=== PATIENT | female | born 1945 | race Caucasian/White ===

== ENCOUNTER → 2023-10-23 06:09 | Day surgery (SDC) | payer MEDICARE, OTHER, SELFPAY | LOC: GI 06:09 | PROVIDERS: ATTENDING PHYSICIAN Internal Medicine | DX: Z12.11 Encounter for screening for malignant neoplasm of colon (principal); D12.2 Benign neoplasm of ascending colon; D12.3 Benign neoplasm of transverse colon; K57.30 Diverticulosis of large intestine without perforation or abscess without bleeding; K64.9 Unspecified hemorrhoids; Z86.010 Personal history of colon polyps; Z79.01 Long term (current) use of anticoagulants | CPT/HCPCS: 45385; 45380; 45381; 88305 ==

== ENCOUNTER → 2023-12-02 08:55 | Outpatient (REF) | payer MEDICARE, OTHER, SELFPAY ==
[2023-12-02 12:29] LABS: ALT (SGPT) 24 U/L (0-35); AST (SGOT) 30 U/L (14-36); Albumin 4.8 g/dl (3.5-5.0); Alkaline Phosphatase 101 U/L (38-126); Blood Urea Nitrogen 17 mg/dl (7-17); Calcium 9.9 mg/dl (8.4-10.2); Carbon Dioxide 24 mmol/L (22-30); Chloride 102 mmol/L (98-107); Glucose 102 mg/dl (70-99); HDL Cholesterol 90 mg/dl; Iron 92 ug/dl (37-170); LDL Cholesterol, Calculated 54 mg/dl; Potassium 4.2 mmol/L (3.5-5.1); Sodium 136 mmol/L (135-145); Total Bilirubin 1.4 mg/dl (0.2-1.3); Total Cholesterol 161 mg/dl (50-199); Total Protein 7.6 g/dl (6.3-8.2); Triglyceride 88 mg/dl (10-149); Very Low Density Lipoprotein 17 mg/dl (0-30); eGFR > 60.00
[2023-12-02 12:38] LABS: Percent Saturation 20 % (20-50); Total Iron Binding Capacity 446 ug/dl (265-497)
[2023-12-02 12:57] LABS: TSH Reflex To Free T4 1.18 uIU/ml (0.47-4.68)
== END ==
LOC: HWLAB 08:55
PROVIDERS: ATTENDING PHYSICIAN Nurse Practitioner Adult Health
DX: D64.9 Anemia, unspecified (principal); I12.9 Hypertensive chronic kidney disease with stage 1 through stage 4 chronic kidney disease, or unspecified chronic kidney disease; I48.0 Paroxysmal atrial fibrillation; E78.5 Hyperlipidemia, unspecified; N18.31 Chronic kidney disease, stage 3a; D72.829 Elevated white blood cell count, unspecified
CPT/HCPCS: 36415; 80053; 80061; 82728; 83540; 83550; 84443

== ENCOUNTER → 2023-12-03 07:24 | Outpatient (REF) | payer MEDICARE, OTHER, SELFPAY ==
[2023-12-03 12:50] LABS: % Eosinophils 1.3 % (0-6); % Immature Granulocytes 0.5 % (0-0.5); % Lymphocytes 12.6 % (20.5-51.1); % Monocytes 9.3 % (1.7-9.3); % Neutrophils 75.3 % (42.2-75.2); Absolute Basophils 0.1 10^3/uL (0-0.2); Absolute Eosinophils 0.1 10^3/uL (0-0.7); Absolute Monocytes 0.7 10^3/uL (0.1-0.6); Absolute Neutrophils 5.9 10^3/uL (1.4-6.5); Hematocrit 44.7 % (37.0-47.0); Hemoglobin 14.3 g/dL (12.0-16.0); Mean Corpuscular Hgb 27.2 pg (27.0-31.0); Mean Corpuscular Volume 85.1 fL (81.0-99.0); Mean Platelet Volume 11.4 fL (7.4-10.4); Nucleated Red Blood Cells % 0 %; Platelet Count 292 10^3/uL (130-400); Red Blood Cell Count 5.25 10^6/uL (4.20-5.40); Red Cell Dist. Width 14.7 % (11.5-14.5); White Blood Cell Count 7.9 10^3/uL (4.8-10.8)
== END ==
LOC: HWLAB 07:24
PROVIDERS: ATTENDING PHYSICIAN Nurse Practitioner Adult Health
DX: D72.829 Elevated white blood cell count, unspecified (principal)
CPT/HCPCS: 36415; 85025

== ENCOUNTER 2024-02-03 06:13 | Day surgery (SDC) | payer MEDICARE, OTHER, SELFPAY ==
[2024-02-03 11:30] VITALS: BP 204/93; BMI 33.1
[2024-02-03 11:45] VITALS: BMI 33.1
[2024-02-03 11:56] VITALS: BP 186/99
[2024-02-03 15:24] VITALS: BP 149/68
[2024-02-03 15:30] VITALS: BP 156/65
[2024-02-03 15:45] VITALS: BP 173/85
== END 2024-02-03 15:55 | disposition home or self-care (01) ==
LOC: GI 06:13
PROVIDERS: ATTENDING PHYSICIAN Internal Medicine Gastroenterology
DX: D12.3 Benign neoplasm of transverse colon (principal); D12.2 Benign neoplasm of ascending colon; Q43.8 Other specified congenital malformations of intestine; K64.0 First degree hemorrhoids
CPT/HCPCS: 45390; 88305

== ENCOUNTER → 2024-03-29 08:20 | Outpatient (REF) | payer MEDICARE, OTHER, SELFPAY ==
[2024-03-29 13:07] LABS: ALT (SGPT) 17 U/L (0-35); AST (SGOT) 23 U/L (14-36); Albumin 4.7 g/dl (3.5-5.0); Alkaline Phosphatase 83 U/L (38-126); Blood Urea Nitrogen 22 mg/dl (7-17); Calcium 10.2 mg/dl (8.4-10.2); Carbon Dioxide 29 mmol/L (22-30); Chloride 102 mmol/L (98-107); Glucose 100 mg/dl (70-99); HDL Cholesterol 84 mg/dl; LDL Cholesterol, Calculated 69 mg/dl; Potassium 4.5 mmol/L (3.5-5.1); Sodium 139 mmol/L (135-145); Total Cholesterol 168 mg/dl (50-199); Total Protein 7.1 g/dl (6.3-8.2); Triglyceride 79 mg/dl (10-149); Very Low Density Lipoprotein 15 mg/dl (0-30); eGFR > 60.00
[2024-03-29 13:20] LABS: Vitamin D, 25-OH*** 41.7 ng/mL (30-80)
[2024-03-29 13:51] LABS: Glycohemoglobin (HgbA1c) 5.7 % (4.0-5.6)
[2024-03-29 13:54] LABS: Microalbumin, Random Urine 3.4 mg/dl (0.6-1.7); Microalbumin/creatinine Ratio 153.8 mg/g
== END ==
LOC: HWLAB 08:20
PROVIDERS: ATTENDING PHYSICIAN Internal Medicine Cardiovascular Disease; FAMILY PHYSICIAN Physician Assistant
DX: L12.9 Pemphigoid, unspecified (principal); N18.31 Chronic kidney disease, stage 3a; R79.89 Other specified abnormal findings of blood chemistry; D64.9 Anemia, unspecified; E78.5 Hyperlipidemia, unspecified; I10 Essential (primary) hypertension; E55.9 Vitamin D deficiency, unspecified
CPT/HCPCS: 80053; 80061; 82043; 82306; 82570; 83036

== ENCOUNTER → 2024-07-22 06:35 | Day surgery (SDC) | payer MEDICARE, OTHER, SELFPAY | LOC: GI 06:35 | PROVIDERS: ATTENDING PHYSICIAN Internal Medicine | DX: Z09 Encounter for follow-up examination after completed treatment for conditions other than malignant neoplasm (principal); Z86.0101 Personal history of adenomatous and serrated colon polyps; K57.30 Diverticulosis of large intestine without perforation or abscess without bleeding; D12.3 Benign neoplasm of transverse colon | CPT/HCPCS: 45385; 45380; 88305 ==

== ENCOUNTER → 2024-11-02 11:43 | Outpatient (REF) | payer MEDICARE, OTHER, SELFPAY | LOC: HWRCS 11:43 | PROVIDERS: ATTENDING PHYSICIAN Internal Medicine Cardiovascular Disease | DX: I34.0 Nonrheumatic mitral (valve) insufficiency (principal) | CPT/HCPCS: 93306 ==

== ENCOUNTER → 2025-01-05 11:35 | Outpatient (REF) | payer MEDICARE, OTHER, SELFPAY | LOC: PAVMRI 11:35 | PROVIDERS: ATTENDING PHYSICIAN Internal Medicine; FAMILY PHYSICIAN Physician Assistant | DX: K86.2 Cyst of pancreas (principal) | CPT/HCPCS: 74183; A9575 ==

== ENCOUNTER 2025-01-17 08:09 | Inpatient (IN) | payer MEDICARE, OTHER, SELFPAY ==
[2024-12-24 13:51] LABS: Hematocrit 44.4 % (37.0-47.0); Hemoglobin 14.9 g/dL (12.0-16.0); Mean Corp Hgb Conc. 33.6 g/dL (33.0-37.0); Mean Corpuscular Hgb 29.3 pg (27.0-31.0); Mean Corpuscular Volume 87.4 fL (81.0-99.0); Mean Platelet Volume 11.3 fL (7.4-10.4); Platelet Count 248 10^3/uL (130-400); Red Blood Cell Count 5.08 10^6/uL (4.20-5.40); Red Cell Dist. Width 13.9 % (11.5-14.5)
[2024-12-24 14:04] LABS: ALT (SGPT) 27 U/L (0-35); AST (SGOT) 37 U/L (14-36); Albumin 4.4 g/dl (3.5-5.0); Alkaline Phosphatase 108 U/L (38-126); Blood Urea Nitrogen 31 mg/dl (7-17); Calcium 10.3 mg/dl (8.4-10.2); Carbon Dioxide 31 mmol/L (22-30); Chloride 99 mmol/L (98-107); Glucose 103 mg/dl (70-99); Potassium 3.9 mmol/L (3.5-5.1); Sodium 139 mmol/L (135-145); Total Protein 7.3 g/dl (6.3-8.2); eGFR > 60.00
[2024-12-24 14:13] VITALS: BMI 30.5
[2024-12-24 14:19] LABS: Glycohemoglobin (HgbA1c) 5.9 % (4.0-5.6)
[2024-12-24 15:54] VITALS: BMI 30.5
[2025-01-17] VITALS (13 sets, daily range): BP systolic 116–176; BP diastolic 50–96; PULSE 94; O2SAT 92; BMI 30.5
[2025-01-17] MEDS: CELEBREX 200 MG PO (09:31)
[2025-01-17] MEDS: TYLENOL 650 MG PO ×4 (09:32→23:29)
[2025-01-17] MEDS: NORMOSOL-R/PLASMALYTE-A 1000 IV ×2 (09:35→15:59)
--- NOTE | 2025-01-17 11:56 | W.PN.UPDATE ---
Update Note
Progress Note Update
R TKA 01/17/25
DVT ppx-Eliquis
PAF-diltiazem, Metoprolol, Sotalol uninterrupted and add Midodrine in the event of [id number] full dose Eliquis on POD#3 if hemodynamically stable
Hx GIB/gastric ulcers/GERD--PPI-hgb stable
PMH:
1. Paroxysmal atrial fibrillation.
2. Hypertension.
3. Hyperlipidemia.
4. Dyspnea on exertion.
5. Mitral regurgitation, moderate.
6. GI bleed secondary to gastric ulcers with resultant iron
deficiency anemia.
7. Breast cancer >20 years, right mastectomy, lymph
node dissection, chemo and radiation.
8. History of elevated LFTs, resolved.
9. GERD.
--- NOTE | 2025-01-17 14:10 | W.DS.TRANS ---
DC Summary - Save All Operator
-
Discharge Instructions:
Sleep Apnea Risk Low
Discharge Diagnosis/Procedures R TKA 01/17/25
Diet As tolerated
Activity With Walker
Additional Activity Adequate hydration, minimize Oxy and wear TEDs
stockings to prevent low blood pressure/
dizziness
Driving Restrictions No driving
Bathing Restrictions OK to Shower
Other Services PT
Instructions:
Stand-Alone Forms: Total Hip/Knee Replacement D/C
Changes to Home Medications: Yes
Discharge Medications:
DC Medications w/original date entered in [facility]
diltiazem HCl 300 mg capsule,extended release 24 hr 300 mg PO DAILY Heart disease/condition 12/16/20
pantoprazole 40 mg tablet,delayed release 40 mg PO DAILY Gastrointestinal Issue 03/29/23
metoprolol succinate 50 mg tablet,extended release 24 hr 75 mg (1.5 x 50 mg) PO DAILY #60 tabs 06/25/23
sotalol 80 mg tablet 80 mg PO BID #60 tabs 06/25/23
atorvastatin 20 mg tablet 20 mg PO QPM 02/03/24
multivitamin with minerals-folic acid 200 mcg chewable tablet (Multivitamin Gummies) 2 tab PO DAILY 12/22/24
dexamethasone 4 mg tablet 4 mg PO BID inflammation #6 tabs 12/24/24
gabapentin 300 mg capsule 300 mg PO HS sleep/pain #10 caps 12/24/24
mupirocin 2 % topical ointment 1 applic topical BID infection prevention #1 tube 12/24/24
ondansetron 4 mg disintegrating tablet 4 mg PO Q6H PRN n/v #20 tabs 12/24/24
oxycodone 5 mg tablet 5 mg PO Q6H PRN 1 tab moderate pain, 2 tabs severe pain #30 tabs 12/24/24
acetaminophen 500 mg tablet 1,000 mg (2 x 500 mg) PO QID #0 tabs 01/17/25
apixaban 5 mg tablet (Eliquis) 2.5 mg (1/2 x 5 mg) PO BID Blood clot prevention/tx/afib #1 tab 01/17/25
docusate sodium 100 mg capsule (Colace) 100 mg PO BID stool softner #1 cap 01/17/25
hydrochlorothiazide 25 mg tablet 25 mg PO DAILY #0 tabs 01/17/25
lisinopril 40 mg tablet 40 mg PO DAILY Blood Pressure #0 tabs 01/17/25
magnesium hydroxide 400 mg/5 mL oral suspension (Milk of Magnesia) 30 ml PO HS PRN constipation #1 mL 01/17/25
sennosides 8.6 mg tablet (Senokot) 17.2 mg (2 x 8.6 mg) PO BID laxative #2 tabs 01/17/25
Home Medication Changes
dexamethasone 4 mg tablet 4 mg PO BID inflammation #6 tabs 12/24/24
gabapentin 300 mg capsule 300 mg PO HS sleep/pain #10 caps 12/24/24
mupirocin 2 % topical ointment 1 applic topical BID infection prevention #1 tube 12/24/24
ondansetron 4 mg disintegrating tablet 4 mg PO Q6H PRN n/v #20 tabs 12/24/24
oxycodone 5 mg tablet 5 mg PO Q6H PRN 1 tab moderate pain, 2 tabs severe pain #30 tabs 12/24/24
acetaminophen 500 mg tablet 1,000 mg (2 x 500 mg) PO QID #0 tabs 01/17/25
apixaban 5 mg tablet (Eliquis) 2.5 mg (1/2 x 5 mg) PO BID Blood clot prevention/tx/afib #1 tab 01/17/25
docusate sodium 100 mg capsule (Colace) 100 mg PO BID stool softner #1 cap 01/17/25
hydrochlorothiazide 25 mg tablet 25 mg PO DAILY #0 tabs 01/17/25
lisinopril 40 mg tablet 40 mg PO DAILY Blood Pressure #0 tabs 01/17/25
magnesium hydroxide 400 mg/5 mL oral suspension (Milk of Magnesia) 30 ml PO HS PRN constipation #1 mL 01/17/25
sennosides 8.6 mg tablet (Senokot) 17.2 mg (2 x 8.6 mg) PO BID laxative #2 tabs 01/17/25
Pending Results: No
[2025-01-17] MEDS: ROXICODONE 5 MG PO ×2 (15:46→23:53)
--- NOTE | 2025-01-17 17:15 | PTCARENOTE ---
Patient admitted from PACU post total right knee arthroplasty.The patient is alert and oriented.She reports herbpain at a 4 out of 10.Vital signs are stable.Neurovascular assessment is within normal limits and ongoing.The dressing is intact without
drainage.The patient is in her bed with the call johnson in place.Her is at the bedside.
[2025-01-17] MEDS: LIPITOR 20 MG PO (18:04)
[2025-01-17] MEDS: ProAmatine PO (18:05)
[2025-01-17] MEDS: ANCEF 5 IV (20:48)
[2025-01-17] MEDS: BACTROBAN 2% OINTMENT 1 APPLIC NASAL (20:48)
[2025-01-17] MEDS: SENOKOT 17.2 MG PO (20:49)
[2025-01-17] MEDS: COLACE 100 MG PO (20:49)
[2025-01-17] MEDS: ELIQUIS 2.5 MG PO (20:50)
[2025-01-17] MEDS: DECADRON 4 MG IV (20:50)
[2025-01-17] MEDS: BETAPACE 80 MG PO (20:50)
[2025-01-17] MEDS: NEURONTIN 300 MG PO (21:22)
[2025-01-18] VITALS (8 sets, daily range): BP systolic 128–164; BP diastolic 58–78; PULSE 59–61; O2SAT 95
[2025-01-18] MEDS: ANESTHETIC LOZENGE 1 LOZENGE PO (01:54)
[2025-01-18] MEDS: ANCEF 5 IV (04:17)
[2025-01-18] MEDS: TYLENOL 650 MG PO ×3 (04:17→11:56)
[2025-01-18] MEDS: ROXICODONE 10 MG PO ×2 (05:56→11:56)
[2025-01-18] MEDS: ELIQUIS 2.5 MG PO (08:18)
[2025-01-18] MEDS: PROTONIX 40 MG PO (08:19)
[2025-01-18] MEDS: SENOKOT 17.2 MG PO (08:19)
[2025-01-18] MEDS: COLACE 100 MG PO (08:19)
[2025-01-18] MEDS: ProAmatine PO (08:20)
[2025-01-18] MEDS: BETAPACE 80 MG PO (08:21)
[2025-01-18] MEDS: CARDIZEM CD 300 MG PO (08:21)
[2025-01-18] MEDS: TOPROL XL 75 MG PO (08:21)
[2025-01-18] MEDS: DECADRON 4 MG IV (08:21)
[2025-01-18] MEDS: FLUSH (NSS) 1 FLUSH IV (08:22)
[2025-01-18] MEDS: BACTROBAN 2% OINTMENT 1 APPLIC NASAL (08:27)
--- NOTE | 2025-01-18 08:32 | W.PN.ORTHO ---
Today's Communication / Plan
-
d/c
Assessment
.
Distal Motor Intact: Yes
Dressing:
Clean, dry and intact.
Assessment:
Incisional hjjfdzyo-NWD-jtggrpca change-no hemodynamic compromise-hgb stable
PAF-diltiazem, Metoprolol, Sotalol uninterrupted and add Midodrine in the event of orthostasis-stable on tele-resume full dose Eliquis on POD#3 if hemodynamically stable
Hx GIB/gastric ulcers/GERD--PPI-hgb stable
Plan
.
Surgery / Date: R TKA 01/17/25
DVT Prophylaxis: Other (Eliquis)
Activity:
Out of bed.
PT/OT
Discharge Plan: Home w/ Outpatient PT
Subjective
.
.:
Patient resting comfortably.
Vital Signs and Labs
.
Vital Signs and Labs:
Lab Results
12/24/24 12:35
12/24/24 12:35
Temp Pulse Resp BP Pulse Ox
98.4 F 60 16 164/74 92
01/18/25 03:00 01/18/25 08:21 01/18/25 03:00 01/18/25 08:21 01/18/25 03:00
Non-invasive Hgb result: 12.8
Physical Exam
-
HEENT: No pallor, cyanosis, or jaundice. Throat clear.
NECK: Supple. No JVD.
RESPIRATORY: Lungs clear to auscultation.
CVS: S1, S2 normal. RRR.� No murmur, rub or gallop.
ABDOMEN: Soft, non-tender. No distension. BS+/normal.
EXTREMITIES: strength equal, no calf pain with palpation-bandage with some distal drainage
MANAGER STORE: AOx3. No focal deficits. psychology teacher grossly intact
--- NOTE | 2025-01-18 09:02 | CM ---
Cm reviewed medical records. Patient lives independently with in bi level home. Patient does not have a history of VN, SNF. Patient confirmed that she has a cane and walker. Patient is active with her PCP. Patient has medication coverage.
Patient plans to use [facility] outpatient physical therapy.
PLAN: home with outpatient physical therapy.
[2025-01-18] MEDS: CYKLOKAPRON 1300 MG PO (13:34)
[2025-01-18] MEDS: ProAmatine 2.5 MG PO (13:37)
== END 2025-01-18 15:12 | disposition home or self-care (01) | DRG 470 ==
LOC: 2 SOUTH 08:09
PROVIDERS: ADMITTING PHYSICIAN Specialist; FAMILY PHYSICIAN Physician Assistant; REFERRING PHYSICIAN Internal Medicine Cardiovascular Disease
PROC: 0SRC0J9 Replacement of Right Knee Joint with Synthetic Substitute, Cemented, Open Approach (ICD-10-PCS; 2025-01-17)
DX: M17.11 Unilateral primary osteoarthritis, right knee (principal); Z68.35 Body mass index [BMI] 35.0-35.9, adult; E66.9 Obesity, unspecified; I48.0 Paroxysmal atrial fibrillation; I10 Essential (primary) hypertension; E78.5 Hyperlipidemia, unspecified; I34.0 Nonrheumatic mitral (valve) insufficiency; D50.9 Iron deficiency anemia, unspecified; Z90.11 Acquired absence of right breast and nipple; Z85.3 Personal history of malignant neoplasm of breast; K21.9 Gastro-esophageal reflux disease without esophagitis; Z79.01 Long term (current) use of anticoagulants
CPT/HCPCS: 36415; 73560; 80053; 83036; 85027; 86850; 86900; 86901; 87070; 97110; 97116; 97162; 97166; 97535; C1713; C1776

== ENCOUNTER 2025-01-19 22:00 | Inpatient (IN) | payer MEDICARE, OTHER, SELFPAY ==
[2025-01-19] VITALS (25 sets, daily range): BP systolic 92–131; BP diastolic 50–66; BMI 37.5; BMI 37.1; BMI 36.1
--- NOTE | 2025-01-19 19:03 | ED.GENMED ---
History of Present Illness
General
Chief Complaint: Heart Rate Problem
Source: patient
Time Seen by Provider: 01/19/25 19:00
History of Present Illness
History of Present Illness:
79-year-old female brought to the emergency room after being found unresponsive by her . The patient recently had her right knee replaced by Dr. Restrepo. She was discharged from the hospital yesterday actually. She took oxycodone for pain
and became very sleepy. Her is having difficulty arousing her. He called 911. When medics arrived they found the patient to be quite bradycardic and hypotensive. She was given a 400 cc fluid bolus and an epinephrine infusion was started.
Patient seemed to improve in their estimation. She arrives here awake, feeling tired but no other specific complaints. Patient did restart her Eliquis this morning. Patient has a history of atrial fibrillation. She takes sotalol, Cardizem and
metoprolol. She denies chest pain.
Past History
Past History
ED Past Medical History: Arrthythmia, HTN and Hypercholesterolemia
ED Past Surgical History: Gynecological
Patient has exhibited threatening behavior?: No
Social History
Tobacco: Non-smoker
Alcohol: None
Drug: None
Personal:
Living: with family
Employment: Retired
Family History
Family History: Other (Noncontributory)
Phy Exam
Physical Exam
Physical Exam:
General: Awake, Alert, Oriented X3. No acute distress.
Vitals: Bradycardic
Head: Atraumatic
Eyes: Pupils equal, EOMI
Throat: Airway intact, no exudates
Neck: Trachea midline
Lungs: Clear and equal b/l
Heart: Regular rate, no murmurs
Abd: Soft, Nontender, No pulsatile mass
Neuro: Nonfocal
Skin: Warm, dry, no rash
Extremities: pulses equal b/l, WANDA stockings in place bilaterally, dressing over right knee.
Course
Orders/Labs/Results
Orders:
Orders
01/19/25 18:53
Electrocardiogram (*1) Urgent
Reason for Study: Bradycardia / Tachycardia
EKG- Treatment ONCE
01/19/25 19:11
Basic Metabolic Panel Urgent
Complete Blood Count/With Diff Urgent
Magnesium Urgent
Phos [Phosphorus] Urgent
TSH Reflex To Free T4 Urgent
01/19/25 19:13
0.9% Sodium Chloride 500 ml [Nss] 500 ml IV BOLUS
01/19/25 20:30
0.9% Sodium Chloride 1000 ml [Nss] 1,000 ml IV DIRECTED
01/19/25 20:31
Urinalysis Urgent
Urine Sodium Urgent
01/19/25 20:32
Osmolality, Random Urine Urgent
Abnormal Lab Results
01/19/25
19:11
WBC 17.2 H 10^3/uL
(4.8-10.8)
RBC 3.68 L 10^6/uL
(4.20-5.40)
Hgb 11.0 L g/dL
(12.0-16.0)
Hct 31.6 L %
(37.0-47.0)
MPV 11.0 H fL
(7.4-10.4)
Abs Immat Gran (auto) 0.6 H 10^3/uL
(0-0.05)
Absolute Neuts (auto) 14.4 H 10^3/uL
(1.4-6.5)
Absolute Monos (auto) 0.9 H 10^3/uL
(0.1-0.6)
Immature Gran % 3.4 H %
(0-0.5)
Neutrophils % 83.4 H %
(42.2-75.2)
Lymphocytes % 7.3 L %
(20.5-51.1)
Sodium 126 L mmol/L
(135-145)
Chloride 94 L mmol/L
(98-107)
BUN 44 H mg/dl
(7-17)
Creatinine 1.5 H mg/dL
(0.6-1.0)
Glucose 218 H mg/dl
(70-99)
Phosphorus 5.4 H mg/dl
(2.5-4.5)
01/19/25 19:11
01/19/25 19:11
Vital Signs
Initial and Last Documented VS:
Initial Vital Signs
Pulse Resp BP Pulse Ox
49 19 98/62 93
01/19/25 18:52 01/19/25 18:52 01/19/25 18:52 01/19/25 18:52
Last Documented Vital Signs
Pulse Resp BP Pulse Ox
42 13 110/56 97
01/19/25 19:55 01/19/25 19:55 01/19/25 19:55 01/19/25 19:55
MDM/Problems Addressed
Differential Diagnosis Includes:
Hypokalemia, dehydration, medication effect, sick sinus syndrome
MDM/Problems Addressed:
Patient presents after a period of being unresponsive. She was found to be hypotensive and bradycardic by medics. On arrival here the patient had improved. She remains bradycardic but her heart rate is staying in the high 30s to low 40s. Her
blood pressure is adequate with a MAP consistently above 65. Labs that showed that the patient is dehydrated with an elevated BUN and creatinine. She is also noted to have a low sodium of 126. All of these labs were normal on preop testing. EKG
shows A-fib with a bradycardic rhythm. Patient will require hospitalization to receive IV fluids, monitor her sodium and renal function and monitor her heart rate and blood pressure. I did communicate with Dr. San who is on-call for cardiology.
He recommends holding her AV pao blocking agents and if she were to require pressors to use epinephrine. Currently I do not believe she requires pressors as again her MAP is adequate. Patient complained of some slurred speech. She had taken
oxycodone shortly before this event. I believe her slurred speech is opiate related as she has no focal neurologic findings.
*Pulse Oximetry
Patient hypoxic: no
*EKG
Interpreted by ED Provider?: Yes
Rate: bradycardiac
Rhythm: a-fib
[place]: normal axis
Interval: normal interval
QRS Pattern: normal QRS
Ischemia: non-specific ST changes
*Yacht Rigger Interpretation
Interpretation: abnormal
Rhythm: a-fib
*Critical Care Note
Total Time (30-74mins, 75-104mins- exclusive of procedures): 40 min
comment:
Critical care statement: A total of 40 minutes of critical care time was provided for this patient. This includes management of unstable vital signs, evaluation of the patient at bedside, reviewing the patient's pertinent medical records, discussion
with consultants, review of old EKGs and review of pertinent medical records. This time with separate from time utilized to perform the aforementioned documented procedures
ED Attending Note
-
Portions of this chart may have been created with voice recognition software.� Occasional wrong word or��sound alike� substitutions may have occurred due to the inherent limitations of voice recognition software.
Discharge Plan
Departure
Patient Disposition: Admit
Date of Disposition: 01/19/25
Time of Disposition: 20:31
Admit to: IMU
Presentation/result/management discussed w/ accepting MD/DO: Hospitalist
Condition: Serious
Discharge Problem:
Symptomatic bradycardia, Acute dehydration, Acute hyponatremia
Prescriptions:
No Action
diltiazem HCl 300 MG capsule,extended release 24hr
300 mg PO DAILY
pantoprazole 40 mg Tablet,Delayed Release (Dr/Ec)
40 mg PO DAILY
Rx Instructions:
30 min before meals
sotalol 80 mg Tablet
80 mg PO BID Qty: 60 5RF
metoprolol succinate 50 mg Tablet Extended Release 24 Hr
75 mg PO DAILY Qty: 60 0RF
atorvastatin 20 mg Tablet
20 mg PO QPM
multivit with min-folic acid [Multivitamin Gummies] 200 mcg Tablet,Chewable
2 tab PO DAILY
mupirocin 2 % ointment
1 applic topical BID Qty: 1 0RF
Patient Comments:
applied this am 01/17/25
dexamethasone 4 mg tablet
4 mg PO BID Qty: 6 0RF
Patient Comments:
for post op
Rx Instructions:
take with food
post-op use only
gabapentin 300 mg capsule
300 mg PO HS Qty: 10 0RF
Patient Comments:
for post op
Rx Instructions:
*POST-OP USE ONLY
ondansetron 4 mg tablet,disintegrating
4 mg PO Q6H PRN (Reason: n/v) Qty: 20 0RF
Patient Comments:
for post op
Rx Instructions:
take 1/2h b/f pain med if recurrent nausea
allow to dissolve in mouth w/o water
oxycodone 5 mg tablet
5 mg PO Q6H PRN (Reason: 1 tab moderate pain, 2 tabs severe pain) Qty: 30 0RF
Patient Comments:
for post op
Rx Instructions:
Ongoing therapy
POST-OP USE ONLY
acetaminophen 500 mg Tablet
1,000 mg PO QID Qty: 0 0RF
hydrochlorothiazide 25 mg Tablet
25 mg PO DAILY Qty: 0 0RF
Rx Instructions:
HOLD SYSTOLIC BLOOD PRESSURE <130 IF TAKING OPIOID
lisinopril 40 mg tablet
40 mg PO DAILY Qty: 0 0RF
Rx Instructions:
HOLD SYSTOLIC BLOOD PRESSURE <130 IF TAKING OPIOID
docusate sodium [Colace] 100 mg capsule
100 mg PO BID Qty: 1 0RF
magnesium hydroxide [Milk of Magnesia] 400 mg/5 mL suspension
30 ml PO HS PRN (Reason: constipation) Qty: 1 0RF
Rx Instructions:
continue taking colace and senokot as advised--if no bowel movement 1 day after surgery -add milk of mag
sennosides [Senokot] 8.6 mg tablet
17.2 mg PO BID Qty: 2 0RF
Eliquis 5 mg tablet
5 mg PO BID
Rx Instructions:
1/2 tab (2.5mg) twice a day--RESUME 5MG TWICE A DAY DOSING ON 01/20/25
Referrals:
Helen Richard PA-C [Family Provider] -
Interventions
Interventions:
*Risk Screen - Suicide Last Done: 01/19/25 19:00
*General Assessment Last Done: 01/19/25 19:00
*Neglect/Abuse Screening Last Done: 01/19/25 19:00
*ED- Fall Risk Assessment Last Done: 01/19/25 19:00
*ED COVID-19 Vaccine History Last Done: 01/19/25 19:00
ED- Cardiac Assessment Last Done: 01/19/25 19:03
ED- Pulmonary Assessment Last Done: 01/19/25 19:03
Discharge Date and Time
Print Language: BELARUSIAN
[2025-01-19] MEDS: NSS 500 IV (19:16)
[2025-01-19 19:20] LABS: % Basophils 0.4 % (0-2); % Immature Granulocytes 3.4 % (0-0.5); % Lymphocytes 7.3 % (20.5-51.1); % Monocytes 5.5 % (1.7-9.3); % Neutrophils 83.4 % (42.2-75.2); Absolute Basophils 0.1 10^3/uL (0-0.2); Absolute Immature Granulocytes 0.6 10^3/uL (0-0.05); Absolute Lymphocytes 1.3 10^3/uL (1.2-3.4); Absolute Monocytes 0.9 10^3/uL (0.1-0.6); Absolute Neutrophils 14.4 10^3/uL (1.4-6.5); Hematocrit 31.6 % (37.0-47.0); Mean Corp Hgb Conc. 34.8 g/dL (33.0-37.0); Mean Corpuscular Hgb 29.9 pg (27.0-31.0); Mean Corpuscular Volume 85.9 fL (81.0-99.0); Nucleated Red Blood Cells % 0 %; Platelet Count 279 10^3/uL (130-400); Red Blood Cell Count 3.68 10^6/uL (4.20-5.40); Red Cell Dist. Width 13.2 % (11.5-14.5); White Blood Cell Count 17.2 10^3/uL (4.8-10.8)
[2025-01-19 19:33] LABS: Blood Urea Nitrogen 44 mg/dl (7-17); Calcium 9.3 mg/dl (8.4-10.2); Carbon Dioxide 22 mmol/L (22-30); Chloride 94 mmol/L (98-107); Estimated Creatinine Clearance 31 ml/min; Glucose 218 mg/dl (70-99); Phosphorus 5.4 mg/dl (2.5-4.5); Potassium 4.7 mmol/L (3.5-5.1); Sodium 126 mmol/L (135-145); eGFR 35.67
[2025-01-19 20:04] LABS: TSH Reflex To Free T4 1.56 uIU/ml (0.47-4.68)
[2025-01-19] MEDS: NSS 1000 IV (21:07)
--- NOTE | 2025-01-19 21:18 | HPS.HSE ---
Family Physician
-
Family Physician: Helen Richard
Chief Complaint
-
decreased reponsiveness
History of Present Illness
79-year-old female past medical history of recent right knee total arthroplasty, paroxysmal atrial fibrillation, HFpEF, moderate mitral regurgitation, hypertension, hyperlipidemia, gastric ulcers, iron deficiency anemia, breast cancer status post
right mastectomy/chemotherapy and radiation, GERD, choledocholithiasis, presenting after being found unresponsive by her .
She was discharged from the hospital yesterday after being admitted for total right knee arthroplasty. She was started on gabapentin, oxycodone and dexamethasone which are new medications after the surgery.
She took a gabapentin last night and then she took her oxycodone in the morning after PT at around 12:30 PM. She took a nap at 3 PM and then her tried to wake her up at 5:30 PM and she was confused and groggy and not able to answer basic
questions. He called EMS.
When medics arrived they found the patient to be bradycardic and hypotensive. She was given 400 cc IV fluid bolus and epinephrine infusion was started. Patient seemed to improve. She arrives here awake but feeling tired and denies any other
specific complaints. She restarted her Eliquis this morning. She denies any chest pain, shortness of breath or dizziness.
As per she is having trouble getting her words out still little bit confused although she has been improving.
She does not smoke or drink alcohol.
Medical History
Past Medical History
Past Medical History: Reports Other (recent right knee total arthroplasty, paroxysmal atrial fibrillation, HFpEF, moderate mitral regurgitation, hypertension, hyperlipidemia, gastric ulcers, iron deficiency anemia, breast cancer status post right
mastectomy/chemotherapy and radiation, GERD, choledocholithiasis,)
Past Surgical History: Reports None
Social History
Tobacco: Non-smoker
Alcohol: None
Drug: None
Family History
Family History: Not pertinent
Allergies / Home Medications
Allergies reflects when Allergies were last updated in [facility].
Home Medications with original date entered in [facility]
Allergy/Medication List:
Allergies
Allergy/AdvReac Type Severity Reaction Status Date / Time
nitrofurantoin Allergy Rash/VASCUL Verified 01/19/25 18:52
[From Macrobid] ITIS
Home Medications
diltiazem HCl 300 mg capsule,extended release 24 hr 300 mg PO DAILY Heart disease/condition 12/16/20
pantoprazole 40 mg tablet,delayed release 40 mg PO DAILY Gastrointestinal Issue 03/29/23
metoprolol succinate 50 mg tablet,extended release 24 hr 75 mg (1.5 x 50 mg) PO DAILY #60 tabs 06/25/23
sotalol 80 mg tablet 80 mg PO BID #60 tabs 06/25/23
atorvastatin 20 mg tablet 20 mg PO QPM 02/03/24
multivitamin with minerals-folic acid 200 mcg chewable tablet (Multivitamin Gummies) 2 tab PO DAILY 12/22/24
dexamethasone 4 mg tablet 4 mg PO BID inflammation #6 tabs 12/24/24
gabapentin 300 mg capsule 300 mg PO HS sleep/pain #10 caps 12/24/24
mupirocin 2 % topical ointment 1 applic topical BID infection prevention #1 tube 12/24/24
ondansetron 4 mg disintegrating tablet 4 mg PO Q6H PRN n/v #20 tabs 12/24/24
oxycodone 5 mg tablet 5 mg PO Q6H PRN 1 tab moderate pain, 2 tabs severe pain #30 tabs 12/24/24
acetaminophen 500 mg tablet 1,000 mg (2 x 500 mg) PO QID #0 tabs 01/17/25
docusate sodium 100 mg capsule (Colace) 100 mg PO BID stool softner #1 cap 01/17/25
hydrochlorothiazide 25 mg tablet 25 mg PO DAILY #0 tabs 01/17/25
lisinopril 40 mg tablet 40 mg PO DAILY Blood Pressure #0 tabs 01/17/25
magnesium hydroxide 400 mg/5 mL oral suspension (Milk of Magnesia) 30 ml PO HS PRN constipation #1 mL 01/17/25
sennosides 8.6 mg tablet (Senokot) 17.2 mg (2 x 8.6 mg) PO BID laxative #2 tabs 01/17/25
apixaban 5 mg tablet (Eliquis) 5 mg PO BID Blood clot prevention/tx/afib 01/19/25
Review of Systems
-
History Source: Patient
A 12 point ROS was completed and negative except as noted: Yes
Constitutional: Reports No Symptoms
EENT: Reports No Symptoms
Respiratory: Reports No Symptoms
Cardiac: Reports No Symptoms
Abdomen/GI: Reports No Symptoms
: Reports No Symptoms
Musculoskeletal: Reports No Symptoms
Skin: Reports No Symptoms
Neurological: Reports No Symptoms
Endocrine: Reports No Symptoms
Hematologic/Lymphatic: Reports No Symptoms
Psych: Reports No Symptoms
Physical Exam
Vital Signs
Vital Signs
Pulse Resp BP Pulse Ox
42 13 110/56 97
01/19/25 19:55 01/19/25 19:55 01/19/25 19:55 01/19/25 19:55
Physical Exam
General: Well Developed, Well Nourished and No Apparent Distress
HEENT: NormoCephalic, Moist mucous membranes and Atraumatic
Respiratory: Clear
Cardiac: S1/S2 and Regular Rhythm; No Murmur or Rub
GI: Soft, Non Tender, Non Distended and Normal Bowel Sounds; No Organomegaly
Rectal: Deferred by Provider
Musculoskeletal: No Clubbing, No Cyanosis and No Edema
Skin: No Rash
Neuro: Nonfocal/grossly intact
Laboratory Results
-
01/19/25 19:11
01/19/25 19:11
Data Reviewed
-
Lab Data: Labs Reviewed by me
Old Records: Reviewed
Impression/Plan
-
IMPRESSION:
PLAN:
# Atrial fibrillation with severe bradycardia secondary to AV pao blocking medications
# History of paroxysmal atrial fibrillation
- Blood pressure here in 90s, heart rate 40s, blood pressure now improved 110
-EKG shows atrial fibrillation with slow ventricular response
-Leukocytosis likely reactive
- Hold all AV pao blocking agents including diltiazem, sotalol and metoprolol
-Hold hydrochlorothiazide, lisinopril
- IV fluids
- Levophed if needed
-Continue Eliquis
- Cardiology consulted
# Speech deficit likely secondary to oversedation from gabapentin/oxycodone with simultaneous hypotension/bradycardia
-Improving
- Hold narcotics
# Acute kidney injury likely prerenal
# Hyperphosphatemia
-Monitor with IV fluids
- Recheck phosphorus in a.m.
# Hyponatremia secondary to hydrochlorothiazide
- Hold hydrochlorothiazide and monitor with IV fluid
Recent right total knee arthroplasty
- Hold oxycodone, gabapentin
-Tylenol for pain
- Continue dexamethasone
Chronic HFpEF
Moderate mitral regurgitation
Essential hypertension
- Hold hydrochlorothiazide, lisinopril
Hyperlipidemia
- Continue statin
History of gastric ulcers
Iron deficiency anemia
Breast cancer status post right mastectomy/chemotherapy and radiation
GERD
- Continue Protonix
History of choledocholithiasis
Full code
DVT prophylaxis�Eliquis
Cardiac diet
[2025-01-20] VITALS (12 sets, daily range): BP systolic 115–158; BP diastolic 57–80; PULSE 67; O2SAT 92–94; BMI 36.1
[2025-01-20] MEDS: TYLENOL 1000 MG PO ×4 (00:06→18:24)
[2025-01-20 02:27] LABS: % Basophils 0.3 % (0-2); % Immature Granulocytes 1.6 % (0-0.5); % Lymphocytes 5.4 % (20.5-51.1); % Monocytes 8.9 % (1.7-9.3); % Neutrophils 83.8 % (42.2-75.2); Absolute Basophils 0.1 10^3/uL (0-0.2); Absolute Immature Granulocytes 0.2 10^3/uL (0-0.05); Absolute Lymphocytes 0.8 10^3/uL (1.2-3.4); Absolute Monocytes 1.3 10^3/uL (0.1-0.6); Absolute Neutrophils 12.3 10^3/uL (1.4-6.5); Hematocrit 28.2 % (37.0-47.0); Hemoglobin 9.6 g/dL (12.0-16.0); Mean Corpuscular Hgb 29.6 pg (27.0-31.0); Mean Platelet Volume 11.1 fL (7.4-10.4); Nucleated Red Blood Cells % 0 %; Platelet Count 195 10^3/uL (130-400); Red Blood Cell Count 3.24 10^6/uL (4.20-5.40); Red Cell Dist. Width 13.2 % (11.5-14.5); White Blood Cell Count 14.7 10^3/uL (4.8-10.8)
[2025-01-20 02:48] LABS: ALT (SGPT) 17 U/L (0-35); AST (SGOT) 24 U/L (14-36); Albumin 3.1 g/dl (3.5-5.0); Alkaline Phosphatase 61 U/L (38-126); Blood Urea Nitrogen 47 mg/dl (7-17); Calcium 8.7 mg/dl (8.4-10.2); Carbon Dioxide 23 mmol/L (22-30); Chloride 99 mmol/L (98-107); Estimated Creatinine Clearance 33 ml/min; Glucose 147 mg/dl (70-99); Phosphorus 4.7 mg/dl (2.5-4.5); Potassium 4.1 mmol/L (3.5-5.1); Sodium 128 mmol/L (135-145); Total Bilirubin 0.6 mg/dl (0.2-1.3); Total Protein 5.3 g/dl (6.3-8.2); eGFR 38.75
[2025-01-20] MEDS: NSS 1000 IV (03:05)
[2025-01-20 04:03] LABS: Osmolality Urine 317 mOsm/kg (300-900)
[2025-01-20 04:09] LABS: Urine Sodium < 5 mmol/L (30-90)
[2025-01-20 04:13] LABS: Urine Albumin 3+ (Neg - Trace); Urine Bilirubin Negative (Negative); Urine Character Slightly Cloudy (Clear); Urine Color Yellow; Urine Glucose Negative (Negative); Urine Ketone Negative (Negative); Urine Leukocyte 3+ (Negative); Urine Nitrite Negative (Negative); Urine Occult Blood 4+ (Negative); Urine Urobilinogen Negative (Neg - 1+)
[2025-01-20 04:35] LABS: Urine Red Blood Cell None Seen /HPF (0-2)
--- NOTE | 2025-01-20 05:09 | PTCARENOTE ---
Addendum entered by Dominga Castellanos RN 01/20/25 05:24:
clarification - pt. was on 2L O2 already on arrival to floor from ED; RA pulse ox checked (85-87%), 2L replaced with sat's increasing to high 90's
Original Note:
Pt. rec'd into room 2246 from ED this shift AAOx3, VSS, sinus keily 40's-50's on the monitor. BP stable at 119/55. Able to ambulate with assist x 1 & RW, gait unsteady (fall precautions initiated). Pt. able to answer all questions appropriately;
denies any dizziness/lightheadedness. Bibasilar crackles present on auscultation and RA pulse ox 85-87% but pt. denies any SOB. placed on 2L with pulse ox increasing to 96-98%. Assessment findings reported to covering hospitalist BUSINESS RULES ANALYST Kalpana,
questioned whether to continue IVF's. BMP redrawn to check sodium (result 128), okay to run NSS at 100 ml/hr per Kalpana. Outstanding urine specimen collected and sent; UA results reported to Kalpana, urine culture added on (pt. denies any
urinary symptoms). Pt. oriented to room and plan of care, understanding verbalized.
--- NOTE | 2025-01-20 07:29 | CON.CAR ---
Addendum entered and electronically signed by Lester Grove MD 01/20/25 11:10:
I saw and examined the patient.
The Wire Spooler's note was reviewed and I agree with the note.
Comment:
GEN: No distress, awake, Ox3
HEENT: supple, anicteric, mmm
LUNGS: CTA, no wheezes/rales
CV: Irreg, S1/S2, 1/6 syst LSB, no gallop
ABD: soft, BS+, NT/ND
EXT: No edema
NEURO: Gross non-focal
SKIN: No rash
PLan:
Patient is well-known to me with past medical history of paroxysmal atrial fibrillation, hypertension, hyperlipidemia, breast cancer, and bradycardia who had an elective right total knee arthroplasty January 17, 2025. Patient overall did well during her
procedure. She was discharged on January 18. She then had episodes of dizziness and grogginess. When she went to rehab she had an episode of near syncope. Her blood pressure was low at 60/30 and heart rates were in the 30s. Patient was given
atropine and epinephrine with improvement. Upon arrival to emergency room she was awake and following commands. She was found to be hyponatremic with creatinine of 1.5.
Initial EKG with intermittent junctional rhythm and heart rate of 43bpm.
I discussed what happened with her . I suspect she took extra sotalol, metoprolol, or diltiazem with her marked bradycardia. She has had sinus bradycardia in the 50s in the past but never down into the 30s.
Recommend hold all blood pressure medication. Hold Toprol, Cardizem, and sotalol for now. She is currently in A-fib with adequate heart rates in the 70s.
Will check echocardiogram today. Clinically she looks well today.
Likely restart her AV pao blocking meds tomorrow. Continue Eliquis. Hemoglobin at 9.6. Follow
Original Note:
Consultation
Consultation Request
Date/Time Consultation Requested: 01/19/25 at 2331
Date/Time Consultation Performed: 01/20/25 at 0736
Requesting Provider: Dr. Mtz
Performing Provider: Dr. Grove
Reason for Consultation: Unresponsive, bradycardia, paroxysmal Afib
Medical History
-
History of Present Illness:
Patient was brought to [facility] ER last night after being found unresponsive at home and was admitted with bradycardia and recurrence of Afib with consultation to cardiology. Patient had right TKA 01/17/25 and was d/c'd to home on her usual doses of
Cardizem ER 300 mg daily, HCTZ 25 mg daily, lisinopril 40 mg daily, Toprol XL 75 mg daily and sotalol 80 mg BID. Patient thought she was doing well at home, but when she went to outpatient PT yesterday morning she fell out of the chair, she blamed
the fact that the chair didn't have arms and that she didn't sit down on the center of the seat. Patient went home and took a dose of oxycodone 5 mg. Patient later told her she was going to take a nap and when patient's went to wake
her she was unresponsive and when she did finally awaken she was not acting normally and not following commands or answering questions so patient's called 911. Paramedics found patient awake, but groggy and BP 58/30 with HR 30-40s. Patient
given atropine without change in HR and then Epi 60 mcg push and then started on Epi gtt at 0.1 mcg/kg/min. Patient was brought to [facility] ER and was more awake and able to follow commands. Patient was hyponatremic and Cre up to 1.5 in the ER.
PMH:
Recent fall, fell at outpatient PT 01/19/25
s/p Right TKA 01/17/25
Bradycardia
Paroxysmal Afib
s/p PVI with evidence of significant LA dilatation and LA myocardial scarring at time of ablation10/16/21
Chronic sotalol therapy since 06/2023
Chronic Eliquis OAC
HTN
HLD
h/o breast CA with right mastectomy, chemotherapy and radiation 1992
-
Past Medical History
Past Medical History: Other (in HPI)
Past Surgical History: Cardiac (PVI 10/2021), Cholecystectomy, , Gynecological (hysterectomy, right mastectomy) and Tonsilectomy
Social History
Tobacco: Non-Smoker
Alcohol: None
Drug: None
Personal:
Living: With Family
Family History
Family History: Hypertension and Other (CHF)
Allergies / Home Medications
Allergy/AdvReac Type Severity Reaction Status Date / Time
nitrofurantoin Allergy Rash/VASCUL Verified 01/19/25 18:52
[From Macrobid] ITIS
�Medication �Instructions �Recorded �Confirmed �Type
diltiazem HCl 300 mg 300 mg PO DAILY Heart 12/16/20 01/19/25 History
capsule,extended release 24 hr disease/condition
pantoprazole 40 mg tablet,delayed 40 mg PO DAILY Gastrointestinal 03/29/23 01/19/25 History
release Issue
metoprolol succinate 50 mg 75 mg (1.5 x 50 mg) PO DAILY #60 06/25/23 01/19/25 Rx
tablet,extended release 24 hr tabs
sotalol 80 mg tablet 80 mg PO BID #60 tabs 06/25/23 01/19/25 Rx
atorvastatin 20 mg tablet 20 mg PO QPM 02/03/24 01/19/25 History
multivitamin with minerals-folic 2 tab PO DAILY 12/22/24 01/19/25 History
acid 200 mcg chewable tablet
(Multivitamin Gummies)
dexamethasone 4 mg tablet 4 mg PO BID inflammation #6 tabs 12/24/24 01/19/25 Rx
gabapentin 300 mg capsule 300 mg PO HS sleep/pain #10 caps 12/24/24 01/19/25 Rx
mupirocin 2 % topical ointment 1 applic topical BID infection 12/24/24 01/19/25 Rx
prevention #1 tube
ondansetron 4 mg disintegrating 4 mg PO Q6H PRN n/v #20 tabs 12/24/24 01/19/25 Rx
tablet
oxycodone 5 mg tablet 5 mg PO Q6H PRN 1 tab moderate 12/24/24 01/19/25 Rx
pain, 2 tabs severe pain #30 tabs
acetaminophen 500 mg tablet 1,000 mg (2 x 500 mg) PO QID #0 01/17/25 01/19/25 Rx
tabs
docusate sodium 100 mg capsule 100 mg PO BID stool softner #1 cap 01/17/25 01/19/25 Rx
(Colace)
hydrochlorothiazide 25 mg tablet 25 mg PO DAILY #0 tabs 01/17/25 01/19/25 Rx
lisinopril 40 mg tablet 40 mg PO DAILY Blood Pressure #0 01/17/25 01/19/25 Rx
tabs
magnesium hydroxide 400 mg/5 mL 30 ml PO HS PRN constipation #1 mL 01/17/25 01/19/25 Rx
oral suspension (Milk of Magnesia)
sennosides 8.6 mg tablet (Senokot) 17.2 mg (2 x 8.6 mg) PO BID 01/17/25 01/19/25 Rx
laxative #2 tabs
apixaban 5 mg tablet (Eliquis) 5 mg PO BID Blood clot 01/19/25 01/19/25 History
prevention/tx/afib
Review of Systems
-
History Source: Patient
All other systems: Negative unless noted
Physical Exam
Vital Signs
Temp Pulse Resp BP Pulse Ox
97.5 F 49 20 115/59 98
01/20/25 07:21 01/20/25 03:10 01/20/25 07:21 01/20/25 03:10 01/20/25 07:21
GEN: NAD. AAO to person, place and situation, but thinks it's Friday and then reorients but quickly disorients on day of week again
HEENT: EOMI, MMM
LUNGS: RA. CTA B/L, no wheeze
CV: Afib on tele. Irreg irreg, S1/S2, 09/20 syst LSB
ABD: ND
EXT: No edema B/L
NEURO: Gross non-focal
SKIN: No rash
Lab Results
01/20/25 02:05
01/20/25 02:05
Impression / Plan
-
Primary Care Provider: Helen Richard PA-C
Primary Volunteer Firefighter: Dr. Grove
EP: Dr. Bernard Melton
Impression:
Admitted with episode of unresponsiveness, bradycardia and recurrent Afib after recent TKA 01/19/25
MICKEY
Hyponatremia
Anemia
Recent fall, fell at outpatient PT 01/19/25
s/p Right TKA 01/17/25
Bradycardia
Recurrence of Afib with controlled ventricular response
Paroxysmal Afib
s/p PVI with evidence of significant LA dilatation and LA myocardial scarring at time of ablation10/16/21
Chronic sotalol therapy since 06/2023
Chronic Eliquis OAC
HTN
HLD
h/o breast CA with right mastectomy, chemotherapy and radiation 1992
ECHO 12/18/20: EF 55-60%, mod dilated LA, mild to mod MR, mod AI, mild TR, mod pulm HTN, PAP 59mmHg
Echo 03/10/23: EF 55-60%, mild to mod MR, mod aortic regurgitation, mild to mod TR
Echo 11/02/24: EF 55 to 60%, biatrial enlargement, mildly dilated RV, mild to moderate MR, mild to moderate aortic regurgitation by pressure half-time of 494 ms, mild to moderate TR with PAP 60 to 65 mmHg, no significant change compared to echo 02/2023
Plan:
-Patient was brought to [facility] ER last night after being found unresponsive at home and was admitted with bradycardia and recurrence of Afib with consultation to cardiology. Patient had right TKA 01/17/25 and was d/c'd to home on her usual doses of
Cardizem ER 300 mg daily, HCTZ 25 mg daily, lisinopril 40 mg daily, Toprol XL 75 mg daily and sotalol 80 mg BID. Patient thought she was doing well at home, but when she went to outpatient PT yesterday morning she fell out of the chair, she blamed
the fact that the chair didn't have arms and that she didn't sit down on the center of the seat. Patient went home and took a dose of oxycodone 5 mg. Patient later told her she was going to take a nap and when patient's went to wake
her she was unresponsive and when she did finally awaken she was not acting normally and not following commands or answering questions so patient's called 911. Paramedics found patient awake, but groggy and BP 58/30 with HR 30-40s. Patient
given atropine without change in HR and then Epi 60 mcg push and then started on Epi gtt at 0.1 mcg/kg/min. Patient was brought to [facility] ER and was more awake and able to follow commands. Patient was hyponatremic and Cre up to 1.5 in the ER.
-ECG reviewed by me is Afib with slow VR at 43 bpm and QTc 452 ms.
-Patient with slow Afib on admission, paramedics reported HRs of 30-40 in the field prior to atropine and then Epi. Patient now in Afib with controlled HR in the 70s. Patient was in SR at her last cardiology visit 11/17/24 and no interval check
post-op so onset of recurrent Afib unknown.
-Outpatient dose of Cardizem ER 300 mg daily is on hold
-Outpatient dose of Toprol XL 75 mg daily is on hold
-Outpatient dose of sotalol 80 mg BID is on hold
-There is not indication of PPM at this point.
-Patient's Eliquis 5 mg BID (age 79, Cre 1.4, wt 83.8 kg) was held pre-op and then restarted at a subtherapeutic dose of 2.5 mg BID on 01/19/25 until she was set to resume therapeutic dosing 01/20/25, correct dose of Eliquis 5 mg BID is currently
ordered.
-Patient had PVI 10/16/21 and at that time she had significant LA myocardial scarring and LA dilatation and was told that her risk of recurrent Afib would be high. For now will focus on rate control of Afib while AV pao blockers washout. Could
eventually restart sotalol and attempt CV.
-Patient was also hypotensive on admission while taking her usual doses of lisinopril 40 mg daily and HCTZ 25 mg daily at home post-TKA. Lisinopril and HCTZ are now on hold,
-Patient has received 2.5 L IVFs as of 01/20/25 AM and is eating and drinking normally. Sodium has improved to 128, Cre improved to 1.4 and phosphorus improved to 4.7 on my review of labs 01/20/25. Would consider stopping IVFs.
-Patient also reporting that she fell at outpatient PT session 01/19/25, she says it was because the chair didn't have arms and she was not seated in the center of the chair. Recommend PT/OT re-eval and consideration of rehab stay before going home
[2025-01-20] MEDS: SENOKOT 17.2 MG PO ×2 (09:00→20:33)
[2025-01-20] MEDS: PROTONIX 40 MG PO (09:00)
[2025-01-20] MEDS: THERAGRAN 1 TABLET PO (09:00)
[2025-01-20] MEDS: COLACE 100 MG PO ×2 (09:00→20:33)
[2025-01-20] MEDS: DECADRON 4 MG PO ×2 (09:00→20:33)
[2025-01-20] MEDS: ELIQUIS 5 MG PO ×2 (09:00→20:33)
[2025-01-20] MEDS: BACTROBAN 2% OINTMENT 1 APPLIC TOPICAL ×2 (09:03→20:34)
--- NOTE | 2025-01-20 11:44 | CM ---
Chart reviewed. Patient recently had a TKR on 01/17. Patient is independent of ADLS, lives with her in a bilevel home, 0 [address], ambulating with a RW and SPC prior to TKR. Patient was receiving outpatient PT at [facility] and [facility]. PT
evaluation ordered. Based on patient's functional needs patient to return home with outpatient PT vs HH vs SNF. CM to follow
--- NOTE | 2025-01-20 12:25 | W.PN.ORTHO ---
Today's Communication / Plan
-
await PT/OT eval
Assessment
.
Distal Motor Intact: Yes
Dressing:
Clean, dry and intact.
Assessment:
Syncope with bradycardia at outpatient PT 01/19/25- apparently became confused and gave double dose of antiarrhythmics and beta blockers-diltiazem, Metoprolol, Sotalol -daughter is aware, moving forward re medication dosing. Also discussed
importance of minimizing opioid or avoiding completely-pain is well controlled on pm Gabapentin and Decadron
R TKA 01/17/25
DVT ppx-Eliquis
Incisional yjanrlax-khpuwhq-Zngiylrycl oral x 1 dose and will change bandage b/f d/c-expected and not unusual amount of drainage given need for anticoagulant
PT/OT consulted-requested orthostatic vitals
+ Fall precautions-nursing states patient unsteady when toileting and unaware
Hyponatremia-decreased IVF rate of NSS-check urine sodium/osmolality for possible SIADH-Na+ Cl- oral if indicated
Urinary symptoms-u/a ? positive--UTI would be unlikely given hu-op antibiotic/Ancef x 3 doses--await culture to avoid antibiotic if not indicated
PAF-meds per cardiology
Hx GIB/gastric ulcers/GERD--PPI-hgb stable
PMH:
1. Paroxysmal atrial fibrillation.
2. Hypertension.
3. Hyperlipidemia.
4. Dyspnea on exertion.
5. Mitral regurgitation, moderate.
6. GI bleed secondary to gastric ulcers with resultant iron
deficiency anemia.
7. Breast cancer >20 years, right mastectomy, lymph
node dissection, chemo and radiation.
8. History of elevated LFTs, resolved.
9. GERD.
Plan
.
Surgery / Date: R TKA 01/17/25
DVT Prophylaxis: Other (Eliquis+ scd)
Activity:
Out of bed.
PT/OT
Discharge Plan: Home w/ Outpatient PT
Subjective
.
.:
Patient resting comfortably.
[facility]-no injury to knee
Vital Signs and Labs
.
Vital Signs and Labs:
Lab Results
01/20/25 02:05
01/20/25 02:05
Temp Pulse Resp BP Pulse Ox
97.4 F 72 20 144/80 92
01/20/25 11:15 01/20/25 07:21 01/20/25 11:15 01/20/25 07:21 01/20/25 11:15
Physical Exam
-
HEENT: No pallor, cyanosis, or jaundice. Throat clear.
NECK: Supple. No JVD.
RESPIRATORY: Lungs clear to auscultation.
CVS: S1, S2 normal. RRR.� No murmur, rub or gallop.
ABDOMEN: Soft, non-tender. No distension. BS+/normal.
EXTREMITIES: strength equal, no calf pain with palpation--distal incisional drainage
FORM PRESSER: AOx3. No focal deficits. orthopaedic general grossly intact
[2025-01-20] MEDS: NSS 500 IV (12:47)
[2025-01-20] MEDS: CYKLOKAPRON 1300 MG PO (13:11)
--- NOTE | 2025-01-20 13:31 | W.PN.UPDATE ---
Update Note
Progress Note Update
Patient spontaneously converted to SR. Will give sotalol 80 mg PO x1 now, CrCl is 44 calculated by me now using Cre of 1.4. Tentatively ordered sotalol 80 mg PO BID to restart 01/21/25 AM so long as CrCl in greater than 60 as renal function improves.
Check ECG in AM, ordered by me.
[2025-01-20] MEDS: BETAPACE 80 MG PO (14:03)
--- NOTE | 2025-01-20 14:06 | W.PN.HOSP.TC ---
Addendum entered and electronically signed by Dean Mtz DO 01/21/25 12:03:
Further clarification of encephalopathy diagnosis:
Toxic metabolic encephalopathy
Original Note:
Today's Communication/Plan
-
Assessment / Plan
Assessment / Plan
General: No Apparent Distress, Comfortable and Conversant
HEENT: NormoCephalic, Moist mucous membranes, Atraumatic
Respiratory: Clear and Non Labored Respirations
Cardiac: S1/S2, irregular rhythm; heart rate 70
GI: Soft, Non Tender, Non Distended and Normal Bowel Sounds
Musculoskeletal: Right knee surgical dressing in place with mild strikethrough
Skin: Warm and dry
: NO James
Neuro: Awake, Alert, Nonfocal/grossly intact
Psych: Calm and Intact Judgment/Insight
Ms. Bingham is a 79-year-old female with a medical history of paroxysmal A-fib (on sotalol and Eliquis), HFpEF, mitral regurg, gastric ulcers, iron deficiency anemia, and recent right TKA who presented with encephalopathy. She was started on
gabapentin, oxycodone, and dexamethasone following her right knee surgery. She became encephalopathic following a second dose of oxycodone later in the day yesterday. When she presented to the ER via EMS she was found to be bradycardic and
hypotensive. Her blood pressure and heart rate improved with IV fluid bolus and epinephrine infusion. Her encephalopathy improved at that time although she remained somewhat confused. She has been admitted for further evaluation management.
Encephalopathy:
- Suspect secondary to opiate pain medications following right TKA
- Now improved, at baseline mental status
- Will use pain medication sparingly to avoid oversedation
Bradycardia:
- Initially heart rate was in 30s to 40s in the ED
- Holding scheduled rate controlling medications
- Heart rate now within normal limits
- Will check echocardiogram
- Cardiology following, recommendations appreciated
- Continue telemetry monitoring
Hypotension:
- Resolved
- Will cautiously restart home medications as able
A-fib:
- Has now converted spontaneously to normal sinus rhythm
- Cardiology following, restarted sotalol
- Anticoagulating with Eliquis
- Continue telemetry monitoring
Recent right TKA:
- OR with Dr. Restrepo 01/17, tolerated procedure well
- Pain control as needed, avoid oversedation
- Continue bowel regimen and scheduled dexamethasone
DVT prophylaxis: Eliquis
CODE STATUS: Full code
Total time spent on today's encounter was 35 minutes
Anticipated Discharge: 24 - 48 hours
Subjective/Interval History
-
Date of Service: January 20, 2025
Patient was seen and examined at bedside this morning. Currently comfortable in heart rate around 70. Currently holding scheduled home rate control medications.
Objective Data
-
Labs:
Laboratory Results
01/20/25
02:05
WBC 14.7 H
Hgb 9.6 L
Hct 28.2 L
Plt Count 195 D
Sodium 128 L
Potassium 4.1
Chloride 99
Carbon Dioxide 23
BUN 47 H
Creatinine 1.4 H
Glucose 147 H
Calcium 8.7
Total Bilirubin 0.6
AST 24
ALT 17
Alkaline Phosphatase 61
Vital Signs:
Vital Signs
Temp Pulse Resp BP Pulse Ox
97.4 F 64 20 141/69 95
01/20/25 11:15 01/20/25 13:00 01/20/25 11:15 01/20/25 12:27 01/20/25 12:27
I&O
01/19/25 01/20/25 01/21/25
06:59 06:59 06:59
Intake Total 400 / 400 120 / 120
Output Total 200 / 200 400 / 400
Balance 200 / 200 -280 / -280
Review of Systems
-
History Source: Patient
All other systems: Reviewed and negative
Physical Exam
-
General: No Apparent Distress
[2025-01-20] MEDS: LIPITOR 20 MG PO (18:25)
--- NOTE | 2025-01-20 19:31 | PTCARENOTE ---
Pt initially oriented to place and person only this morning, she stated that she gets like that 'when she has a UTI'. Pt also having difficulty judging sitting on the toilet. Pt seen by PT. Pt much more oriented and moving better towards the
evening.Fall precautions in place. Pt OOB to chair and room using a walker. Right knee dressing with some old drainage, to be changed on 01/21 per Gisela Yates. Pt states good pain control with tylenol. Telemetry showed atrial fib initially and then
sinus rhythm with heart rates @60's. Sotalol restarted , will monitor closely.
[2025-01-20] MEDS: TYLENOL PO (22:35)
--- NOTE | 2025-01-20 23:17 | PTCARENOTE ---
received patient at the change of shift. AAOx3. patient states feeling much better. denies any pain. Rt knee swollen, dressing intact, old drainage. ambulated to the bathroom with the walker-steady. SR on tele 60s. bp 143/71. reviewed plan of care
with patient and verbalized understanding. educated to inform RN with any changes and for assistance. calls appropriately.
[2025-01-21] VITALS (15 sets, daily range): BP systolic 144–197; BP diastolic 51–82; PULSE 82; BMI 36.8
[2025-01-21 04:16] LABS: % Basophils 0.1 % (0-2); % Immature Granulocytes 1.9 % (0-0.5); % Lymphocytes 5.5 % (20.5-51.1); % Monocytes 4.7 % (1.7-9.3); % Neutrophils 87.8 % (42.2-75.2); Absolute Immature Granulocytes 0.2 10^3/uL (0-0.05); Absolute Lymphocytes 0.6 10^3/uL (1.2-3.4); Absolute Monocytes 0.5 10^3/uL (0.1-0.6); Absolute Neutrophils 9.5 10^3/uL (1.4-6.5); Hematocrit 28.7 % (37.0-47.0); Hemoglobin 9.7 g/dL (12.0-16.0); Mean Corp Hgb Conc. 33.8 g/dL (33.0-37.0); Mean Corpuscular Hgb 29.6 pg (27.0-31.0); Mean Corpuscular Volume 87.5 fL (81.0-99.0); Mean Platelet Volume 11.5 fL (7.4-10.4); Nucleated Red Blood Cells % 0 %; Platelet Count 198 10^3/uL (130-400); Red Blood Cell Count 3.28 10^6/uL (4.20-5.40); Red Cell Dist. Width 13.3 % (11.5-14.5); White Blood Cell Count 10.9 10^3/uL (4.8-10.8)
[2025-01-21 04:42] LABS: Blood Urea Nitrogen 44 mg/dl (7-17); Calcium 8.6 mg/dl (8.4-10.2); Carbon Dioxide 25 mmol/L (22-30); Chloride 105 mmol/L (98-107); Estimated Creatinine Clearance 50 ml/min; Glucose 138 mg/dl (70-99); Phosphorus 2.5 mg/dl (2.5-4.5); Potassium 4.2 mmol/L (3.5-5.1); Sodium 138 mmol/L (135-145); eGFR > 60.00
--- NOTE | 2025-01-21 07:25 | W.PN.CARDCBS ---
Addendum entered and electronically signed by Val Viera DO 01/21/25 18:09:
I saw and examined the patient.
[facility] Support Specialist's note was reviewed and I agree with the note.
Comment: Patient was seen and examined. Overall feels better reported right knee pain. No chest pain or pressure. No dizziness while lying in bed.Chart/telemetry reviewed
GEN: No distress, awake, alert, oriented x3
HEENT: supple, anicteric, mmm
LUNGS: CTA b/l, no wheezes/rales
CV: Reg, S1/S2, no murmur
EXT: Right knee dressing following right total knee replacement with mild knee swelling
Plan:
Symptomatic bradycardia with syncope and history of paroxysmal atrial fibrillation. Remains in sinus rhythm with improved heart rate trends after discontinuation of diltiazem and metoprolol succinate.
-Remains on sotalol with stable heart rate trends
- Continue Eliquis anticoagulation
- Blood pressure is now elevated and will resume lisinopril and hydrochlorothiazide at lower doses. We did discuss possibility of a combination medication however she just had medications filled. Will resume lisinopril 20 mg daily and
hydrochlorothiazide 12-1/2 mg daily. Monitor blood pressure trends and uptitrate if needed. Goal normotension
- Renal function has improved; repeat basic metabolic profile in 1 to 2 weeks as an outpatient after restarting lisinopril and hydrochlorothiazide. We discussed the importance of adequate hydration
- Marked hyponatremia with previously normal sodium on hydrochlorothiazide as an outpatient. Monitor basic metabolic profile closely with the resumption of hydrochlorothiazide 12.5 mg daily. If sodium trends lower would discontinue and add as an
allergy.
- Postop anemia with hemoglobin 9.7, preoperative hemoglobin 14.9. Would follow H&H closely particularly on Eliquis anticoagulation.
- PT OT as per orthopedics
- Outpatient cardiac follow-up to be arranged.
-Discharge planning as per primary
Addendum entered and electronically signed by Rebecca Argueta PA-C 01/21/25 16:34:
BP remains elevated this afternoon, given an additional dose of lisinopril 20mg. Continue to follow BP overnight.
Original Note:
Today's Communication / Plan
-
Resume lisinopril/HCTZ at lower dose 20/12.5
Continue sotalol
Continue Eliquis
Check BMP in 1-2 weeks as OP
Follow up arranged
Impression / Plan
-
Primary Care Provider: Helen Richard PA-C
Primary Collar Feller: Dr. Grove
EP: Dr. Bernard Melton
Impression:
Admitted with episode of unresponsiveness, bradycardia and recurrent Afib after recent TKA 01/19/25
MICKEY, improved.
Hyponatremia, improved
Anemia
Recent fall, fell at outpatient PT 01/19/25
s/p Right TKA 01/17/25
Bradycardia
Paroxysmal Afib
s/p PVI with evidence of significant LA dilatation and LA myocardial scarring at time of ablation10/16/21
Chronic sotalol therapy since 06/2023
Chronic Eliquis OAC
HTN
HLD
h/o breast CA with right mastectomy, chemotherapy and radiation 1992
ECHO 12/18/20: EF 55-60%, mod dilated LA, mild to mod MR, mod AI, mild TR, mod pulm HTN, PAP 59mmHg
Echo 03/10/23: EF 55-60%, mild to mod MR, mod aortic regurgitation, mild to mod TR
Echo 11/02/24: EF 55 to 60%, biatrial enlargement, mildly dilated RV, mild to moderate MR, mild to moderate aortic regurgitation by pressure half-time of 494 ms, mild to moderate TR with PAP 60 to 65 mmHg, no significant change compared to echo 02/2023
Plan:
-Presented after unresponsive episode at home. Admitted w/ bradycardia and hypotension. All cardiac medications held on admission.
-Noted to be in recurrent rate controlled afib on arrival, spontaneously converted to SR overnight. HR improved into the 60s and restarted sotalol 80mg BID in PM 01/20.
-Remains in SR this AM, HRs stable in the 60s. QTc stable at 448 ms by ECG this AM.
-Calculated creat clearance is 70 mL/min, so will continue current dose of sotalol.
-MICKEY noted on arrival w/ creat up to 1.4. Improved, down to 0.9 this AM.
-Lisinopril and HCTZ on hold. Will resume lisinopril/HCTZ at lower dose 20/12.5mg daily as BP elevated this AM.
-Will continue to hold Cardizem and Toprol as HR stable on sotalol alone. May consider resuming as OP.
-Check BMP in 1-2 weeks as OP.
-Continue Eliquis 5mg BID.
-Cardiology follow up arranged.
HPI: Patient was brought to [facility] ER last night after being found unresponsive at home and was admitted with bradycardia and recurrence of Afib with consultation to cardiology. Patient had right TKA 01/17/25 and was d/c'd to home on her usual doses of
Cardizem ER 300 mg daily, HCTZ 25 mg daily, lisinopril 40 mg daily, Toprol XL 75 mg daily and sotalol 80 mg BID. Patient thought she was doing well at home, but when she went to outpatient PT yesterday morning she fell out of the chair, she blamed
the fact that the chair didn't have arms and that she didn't sit down on the center of the seat. Patient went home and took a dose of oxycodone 5 mg. Patient later told her she was going to take a nap and when patient's went to wake
her she was unresponsive and when she did finally awaken she was not acting normally and not following commands or answering questions so patient's called 911. Paramedics found patient awake, but groggy and BP 58/30 with HR 30-40s. Patient
given atropine without change in HR and then Epi 60 mcg push and then started on Epi gtt at 0.1 mcg/kg/min. Patient was brought to [facility] ER and was more awake and able to follow commands. Patient was hyponatremic and Cre up to 1.5 in the ER.
Progress Note - Collar Feller
Subjective
Date of Service: January 21, 2025
Feeling well this AM. No chest pain, dizziness, or SOB. Ambulating without weakness/lightheadedness.
Objective
Labs:
01/21/25 03:42
01/21/25 03:42
Labs
Hgb 9.7 g/dL (12.0-16.0) L 01/21/25 03:42
Hct 28.7 % (37.0-47.0) L 01/21/25 03:42
Plt Count 198 10^3/uL (130-400) 01/21/25 03:42
Sodium 138 mmol/L (135-145) D 01/21/25 03:42
Potassium 4.2 mmol/L (3.5-5.1) 01/21/25 03:42
BUN 44 mg/dl (7-17) H 01/21/25 03:42
Creatinine 0.9 mg/dL (0.6-1.0) 01/21/25 03:42
Glucose 138 mg/dl (70-99) H 01/21/25 03:42
Vital Signs and I&O:
Vital Signs
Temp Pulse Resp BP Pulse Ox
98.1 F 64 18 160/82 97
01/21/25 07:20 01/21/25 05:00 01/21/25 07:20 01/21/25 03:39 01/21/25 07:20
Vital Signs
Temp Pulse Resp BP Pulse Ox
98.1 F 64 18 160/82 97
01/21/25 07:20 01/21/25 05:00 01/21/25 07:20 01/21/25 03:39 01/21/25 07:20
Intake & Output
01/19/25 01/20/25 01/21/25 01/22/25
06:59 06:59 06:59 06:59
Intake Total 400 / 400 1240 / 1240
Output Total 200 / 200 400 / 400
Balance 200 / 200 840 / 840
Physical Exam
Physical Exam
GEN: No distress, awake, alert, oriented x3
HEENT: supple, anicteric, mmm
LUNGS: CTA b/l, no wheezes/rales
CV: Reg, S1/S2, no murmur
EXT: No clubbing, cyanosis, or edema
NEURO: Gross non-focal
SKIN: Warm, dry, no rash
[2025-01-21] MEDS: ELIQUIS 5 MG PO ×2 (09:13→20:33)
[2025-01-21] MEDS: ORETIC 12.5 MG PO (09:13)
[2025-01-21] MEDS: ZESTRIL 20 MG PO ×2 (09:14→16:46)
[2025-01-21] MEDS: THERAGRAN 1 TABLET PO (09:14)
[2025-01-21] MEDS: COLACE 100 MG PO (09:14)
[2025-01-21] MEDS: TYLENOL 1000 MG PO ×4 (09:14→21:23)
[2025-01-21] MEDS: PROTONIX 40 MG PO (09:14)
[2025-01-21] MEDS: BETAPACE 80 MG PO ×2 (09:14→20:32)
[2025-01-21] MEDS: BACTROBAN 2% OINTMENT 1 APPLIC TOPICAL ×2 (09:15→20:32)
[2025-01-21] MEDS: DECADRON 4 MG PO ×2 (09:15→20:33)
[2025-01-21] MEDS: SENOKOT 17.2 MG PO (09:15)
--- NOTE | 2025-01-21 09:15 | PTCARENOTE ---
Assumed care of patient at 0700. Pt is awake, alert, and oriented. No complaints of pain at this time, pt reports right knee discomfort when ambulating due to recent rTKA. Pt remains SR with HR 60's-70's. BP 176/74 MAP 104. Scheduled morning BP
medications administered per order. Pulse oximetry 97% on room air. Tolerating PO diet. Voiding in bathroom without issue. Right knee with post-surgical dressing in place, old drainage present.
--- NOTE | 2025-01-21 10:59 | CM ---
Chart reviewed. Patient is independent of ADLS, lives with her in a split level home, [address], has RW, SPC and a chair lift. Patient recently had a TKR and was receiving outpatient PT. Now with the changes in her medication, she would
prefer to have a VN with Home PT. PT evaluation recommending HH. Plan is for the patient to return home with [facility]. CM to follow
--- NOTE | 2025-01-21 11:58 | PN.CDI ---
CDI
- -
CDI:
Physician Documentation Request
Admit Date: 01/19/25 22:00
Dear Doctor Smith,
Please review the following and provide your response in the progress notes.
Clinical Indicators:
- Patient admit with bradycardia, atrial fibrillation, and hypotension
- 01/19 ER Physician 'found unresponsive by her '
- 01/20 PN 'Encephalopathy...Suspect secondary to opiate pain medications'
Please specify the known or suspected type of the documented encephalopathy.
Metabolic
Toxic
Toxic metabolic
Other (please specify)
Use of terms such as suspected, likely, concern for, or probable (associated with a specific diagnosis that is being evaluated, monitored, or treated as if it exists) are acceptable and can be coded in the inpatient setting, when documented at the
time of discharge.
Thank you,
Shayy Verduzco RN
CDI Specialist
Please use your independent medical judgment in providing your response.
--- NOTE | 2025-01-21 12:03 | W.PN.ORTHO ---
Today's Communication / Plan
-
d/c when stable
Assessment
.
Distal Motor Intact: Yes
Dressing:
Clean, dry and intact.
Assessment:
*Syncope with bradycardia at outpatient PT 01/19/25- apparently became confused and gave double dose of antiarrhythmics and beta blockers-diltiazem, Metoprolol, Sotalol -daughter is aware, moving forward re medication dosing. Also discussed
importance of minimizing opioid or avoiding completely-pain is well controlled on pm Gabapentin and Decadron
*R TKA 01/17/25
DVT ppx-Eliquis
*Incisional qsqwklcn-jiinjvk-Yqyxefulih oral x 2 total doses this visit--Ortho PA will change bandage and apply angelo if necessary--expected and not unusual amount of drainage given need for anticoagulant
PT/OT consulted-requested- orthostatic vitals stable
+ Fall precautions-nursing states patient unsteady when toileting and unaware
*MICKEY due to decreased cardiac output/keily and mild acute blood loss anemia-renal function fully recovered and at baseline
Hyponatremia-decreased IVF rate-s/p NSS-urine sodium/osmolality not indicative of SIADH-resolved
*Urinary symptoms-u/a ? positive--UTI would be unlikely given hu-op antibiotic/Ancef x 3 doses--culture resulted -No growth
*PAF-meds per cardiology
*Hx GIB/gastric ulcers/GERD--PPI-hgb stable
Plan
.
Surgery / Date: R TKA 01/17/25
DVT Prophylaxis: Other (Eliquis)
Activity:
Out of bed.
PT/OT
Subjective
.
.:
Patient resting comfortably.
Vital Signs and Labs
.
Vital Signs and Labs:
Lab Results
01/21/25 03:42
01/21/25 03:42
Temp Pulse Resp BP Pulse Ox
98.1 F 64 22 160/82 98
01/21/25 11:27 01/21/25 05:00 01/21/25 11:27 01/21/25 03:39 01/21/25 11:27
Physical Exam
-
ABDOMEN: Soft, non-tender. No distension. BS+/normal.
EXTREMITIES: strength equal, no calf pain with palpation
HIGHWAY PATROL COMMANDER: AOx3. No focal deficits. physician primary care sports medicine grossly intact
--- NOTE | 2025-01-21 12:53 | W.PN.UPDATE ---
Update Note
Progress Note Update
Patient has been readmitted to the hospital. Currently under the care of Gisela Yates PA-C, Hospitalist team and cardiology. S/p RIGHT TKA on 17 Jan 2025 (Kaye). Apparently there was some confusion at home and her overdosed her cardiac
meds. Seated bedside in chair. feeling much better. in room. Afeb. Hgb 9.7. Eliquis was increased to maintenance dose. Noted some increase strikethrough in her dressing. Nothing breaching the dressing. Orthopedics was requested for
dressing change and possible staple application. Upon dressing removal no active bloody drainage, noted to be coagulated in the dressing. No area of concern that needed angelo. Incision was cleaned with Betadine and new Aquacel dressing was
applied. Compression stocking was placed over top. Continue treatment per the primary team/cardiology. when medically optimized and discharged she will follow-up in the office in 10 days for staple removal. Advised as much icing and elevation as
she can. Continue PT/OT if deemed safe
[2025-01-21] MEDS: CYKLOKAPRON 1300 MG PO (13:00)
--- NOTE | 2025-01-21 13:56 | PTCARENOTE ---
Ortho MD to bedside to change right knee post-surgical dressing. New dressing CDI. Pt reports having bowel movement x2 today. Pt remains SR with HR 60's-70's. BP 187/71 MAP 105. Hospitalist made aware of BP, no new interventions at this time.
--- NOTE | 2025-01-21 16:20 | W.PN.HOSP.TC ---
Today's Communication/Plan
-
Assessment / Plan
Assessment / Plan
General: No Apparent Distress, Comfortable and Conversant
HEENT: NormoCephalic, Moist mucous membranes, Atraumatic
Respiratory: Clear and Non Labored Respirations
Cardiac: S1/S2, irregular rhythm; heart rate 70
GI: Soft, Non Tender, Non Distended and Normal Bowel Sounds
Musculoskeletal: Right knee surgical dressing in place with sanguinous oozing
Skin: Warm and dry
: NO James
Neuro: Awake, Alert, Nonfocal/grossly intact
Psych: Calm and Intact Judgment/Insight
Ms. Bingham is a 79-year-old female with a medical history of paroxysmal A-fib (on sotalol and Eliquis), HFpEF, mitral regurg, gastric ulcers, iron deficiency anemia, and recent right TKA who presented with encephalopathy. She was started on
gabapentin, oxycodone, and dexamethasone following her right knee surgery. She became encephalopathic following a second dose of oxycodone later in the day yesterday. When she presented to the ER via EMS she was found to be bradycardic and
hypotensive. Her blood pressure and heart rate improved with IV fluid bolus and epinephrine infusion. Her encephalopathy improved at that time although she remained somewhat confused. She has been admitted for further evaluation management.
Encephalopathy:
- Suspect secondary to opiate pain medications following right TKA
- Now resolved, at baseline mental status
- Will use pain medication sparingly to avoid oversedation
Bradycardia:
- Initially heart rate was in 30s to 40s in the ED
- Resolved, continuing sotalol 80 mg p.o. twice daily, will continue holding diltiazem and metoprolol
- Cardiology following, recommendations appreciated
- Continue telemetry monitoring
Hypotension:
- Resolved, now significantly hypertensive
- Had initially restarted lisinopril and HCTZ at lower doses, will adjust doses further as needed
- Cardiology following
A-fib:
- Has now converted spontaneously to normal sinus rhythm
- Cardiology following, restarted sotalol
- Anticoagulating with Eliquis
- Continue telemetry monitoring
Recent right TKA:
- OR with Dr. Restrepo 01/17, tolerated procedure well
- Pain control as needed, avoid oversedation
- Continue bowel regimen and scheduled dexamethasone
- Surgical dressing evaluated by Ortho, dressing exchanged and incision cleaned, no active bleeding, no need for additional angelo, outpatient follow-up in 10 days for staple removal
DVT prophylaxis: Eliquis
CODE STATUS: Full code
Total time spent on today's encounter was 35 minutes
Anticipated Discharge: Within 24 hours
Subjective/Interval History
-
Date of Service: January 21, 2025
Patient was seen and examined at bedside this morning. She is feeling back to her baseline. However her blood pressure is uncontrolled and she has some oozing from her right TKA surgical dressing.
Objective Data
-
Labs:
Laboratory Results
01/21/25
03:42
Sodium 138 D
Potassium 4.2
Chloride 105
Carbon Dioxide 25
BUN 44 H
Creatinine 0.9
Glucose 138 H
Calcium 8.6
Vital Signs:
Vital Signs
Temp Pulse Resp BP Pulse Ox
98.9 F 68 20 187/71 98
01/21/25 14:55 01/21/25 13:00 01/21/25 14:55 01/21/25 12:50 01/21/25 14:55
I&O
01/20/25 01/21/25 01/22/25
06:59 06:59 06:59
Intake Total 400 / 400 1240 / 1240
Output Total 200 / 200 400 / 400
Balance 200 / 200 840 / 840
Review of Systems
-
History Source: Patient
All other systems: Reviewed and negative
Physical Exam
-
General: No Apparent Distress
--- NOTE | 2025-01-21 17:06 | PTCARENOTE ---
Pt ambulated with PT, tolerated well. BP remains elevated, most recent BP 197/76 MAP 109, one time dose of 20mg Lisinopril administered per order.
[2025-01-21] MEDS: LIPITOR 20 MG PO (18:08)
[2025-01-21] MEDS: COLACE PO (20:04)
[2025-01-21] MEDS: SENOKOT PO (20:04)
--- NOTE | 2025-01-21 22:00 | PTCARENOTE ---
Patient received at change of shift out of bed to the chair. Right knee aquacell with small amount of sanguinous drainage. Pedal pulse palpable. Right knee ecchymotic, +1 edema. Patient endorses mild pain to the right knee but reports that scheduled
acetaminophen is adequate for pain control. Sinus rhythm on telemetry. Oxygen saturation 96-97% on room air. Patient denies feeling lightheaded or dizzy. Plan of care discussed. Call johnson within reach. Care ongoing.
[2025-01-22] VITALS (11 sets, daily range): BP systolic 154–206; BP diastolic 60–88; BMI 36.0
[2025-01-22 02:38] LABS: % Basophils 0.2 % (0-2); % Immature Granulocytes 4.3 % (0-0.5); % Lymphocytes 7.3 % (20.5-51.1); % Monocytes 6.5 % (1.7-9.3); % Neutrophils 81.7 % (42.2-75.2); Absolute Immature Granulocytes 0.5 10^3/uL (0-0.05); Absolute Lymphocytes 0.9 10^3/uL (1.2-3.4); Absolute Monocytes 0.8 10^3/uL (0.1-0.6); Absolute Neutrophils 10.2 10^3/uL (1.4-6.5); Hematocrit 30.4 % (37.0-47.0); Hemoglobin 10.4 g/dL (12.0-16.0); Mean Corp Hgb Conc. 34.2 g/dL (33.0-37.0); Mean Corpuscular Hgb 29.6 pg (27.0-31.0); Mean Corpuscular Volume 86.6 fL (81.0-99.0); Mean Platelet Volume 10.8 fL (7.4-10.4); Nucleated Red Blood Cells % 0.3 %; Platelet Count 235 10^3/uL (130-400); Red Blood Cell Count 3.51 10^6/uL (4.20-5.40); Red Cell Dist. Width 13.5 % (11.5-14.5); White Blood Cell Count 12.5 10^3/uL (4.8-10.8)
[2025-01-22 02:51] LABS: Blood Urea Nitrogen 32 mg/dl (7-17); Carbon Dioxide 30 mmol/L (22-30); Chloride 103 mmol/L (98-107); Estimated Creatinine Clearance 64 ml/min; Glucose 135 mg/dl (70-99); Magnesium 1.9 mg/dl (1.6-2.3); Phosphorus 2.2 mg/dl (2.5-4.5); Potassium 4.1 mmol/L (3.5-5.1); Sodium 138 mmol/L (135-145); eGFR > 60.00
[2025-01-22 07:33] LABS: Glucose - Point of Care 114 mg/dl (70-99)
[2025-01-22] MEDS: ZESTRIL 40 MG PO (08:39)
[2025-01-22] MEDS: PROTONIX 40 MG PO (08:39)
[2025-01-22] MEDS: BETAPACE 80 MG PO ×2 (08:40→21:00)
[2025-01-22] MEDS: DECADRON 4 MG PO ×2 (08:40→21:00)
[2025-01-22] MEDS: SENOKOT 17.2 MG PO (08:40)
[2025-01-22] MEDS: TYLENOL 1000 MG PO ×4 (08:40→22:04)
[2025-01-22] MEDS: THERAGRAN 1 TABLET PO (08:40)
[2025-01-22] MEDS: ELIQUIS 5 MG PO ×2 (08:40→21:00)
[2025-01-22] MEDS: BACTROBAN 2% OINTMENT 1 APPLIC TOPICAL ×2 (08:40→20:59)
[2025-01-22] MEDS: ORETIC 25 MG PO (08:40)
[2025-01-22] MEDS: COLACE 100 MG PO ×2 (08:40→21:00)
--- NOTE | 2025-01-22 08:50 | W.PN.CARDCBS ---
Today's Communication / Plan
-
Increase lisinopril and hydrochlorothiazide back to baseline dose, 40 mg and 25 mg daily
Add amlodipine 5 mg daily for significant hypertension
Reassess later today regarding blood pressure control
We will arrange for cardiac follow-up
Impression / Plan
-
Primary Care Provider: Helen Richard PA-C
Primary Jerker: Dr. Grove
EP: Dr. Bernard Melton
Impression:
Admitted with episode of unresponsiveness, bradycardia and recurrent Afib after recent TKA 01/19/25
MICKEY, improved.
Hyponatremia, improved
Anemia
Recent fall, fell at outpatient PT 01/19/25
s/p Right TKA 01/17/25
Bradycardia
Paroxysmal Afib
s/p PVI with evidence of significant LA dilatation and LA myocardial scarring at time of ablation10/16/21
Chronic sotalol therapy since 06/2023
Chronic Eliquis OAC
HTN
HLD
h/o breast CA with right mastectomy, chemotherapy and radiation 1992
ECHO 12/18/20: EF 55-60%, mod dilated LA, mild to mod MR, mod AI, mild TR, mod pulm HTN, PAP 59mmHg
Echo 03/10/23: EF 55-60%, mild to mod MR, mod aortic regurgitation, mild to mod TR
Echo 11/02/24: EF 55 to 60%, biatrial enlargement, mildly dilated RV, mild to moderate MR, mild to moderate aortic regurgitation by pressure half-time of 494 ms, mild to moderate TR with PAP 60 to 65 mmHg, no significant change compared to echo 02/2023
Plan:
From the standpoint of A-fib and bradycardia, she is doing well. She is in sinus rhythm, on sotalol. Would not restart diltiazem or metoprolol.
Her blood pressure is elevated. Lisinopril and hydrochlorothiazide have been uptitrated to 40 mg and 25 mg respectively which was her baseline dose.
We will add amlodipine 5 mg daily.
Will reassess later today as to whether or not she is appropriate for discharge today or whether we should observe until blood pressure better controlled.
We will arrange for outpatient cardiac follow-up.
Anticipated cardiac medications at discharge:
Apixaban 5 mg twice daily
Atorvastatin 20 mg nightly
Sotalol 80 mg twice daily
Lisinopril 40 mg daily
Hydrochlorothiazide 25 mg daily
Amlodipine 5 mg daily (may need to uptitrate to 10 mg daily)
HPI: Patient was brought to [facility] ER last night after being found unresponsive at home and was admitted with bradycardia and recurrence of Afib with consultation to cardiology. Patient had right TKA 01/17/25 and was d/c'd to home on her usual doses of
Cardizem ER 300 mg daily, HCTZ 25 mg daily, lisinopril 40 mg daily, Toprol XL 75 mg daily and sotalol 80 mg BID. Patient thought she was doing well at home, but when she went to outpatient PT yesterday morning she fell out of the chair, she blamed
the fact that the chair didn't have arms and that she didn't sit down on the center of the seat. Patient went home and took a dose of oxycodone 5 mg. Patient later told her she was going to take a nap and when patient's went to wake
her she was unresponsive and when she did finally awaken she was not acting normally and not following commands or answering questions so patient's called 911. Paramedics found patient awake, but groggy and BP 58/30 with HR 30-40s. Patient
given atropine without change in HR and then Epi 60 mcg push and then started on Epi gtt at 0.1 mcg/kg/min. Patient was brought to [facility] ER and was more awake and able to follow commands. Patient was hyponatremic and Cre up to 1.5 in the ER.
Progress Note - Jerker
Subjective
Date of Service: January 22, 2025:
79-year-old woman admitted with dizziness and change in mentation with hypotension and heart rate in the 30s, related to combination of sotalol, metoprolol and diltiazem, possibly with unintentional medication overdose. She has some knee
discomfort, some edema right greater than left. Issue has been hypertension. She is not on metoprolol or diltiazem, has not been on amlodipine.
PMH/PSH: Paroxysmal atrial fibrillation, hypertension, hyperlipidemia, breast cancer, total knee arthroplasty January 17, 2025
Current medications: Apixaban 5 mg twice daily, atorvastatin 20 mg a day, dexamethasone 4 mg twice daily, Colace, multivitamins, pantoprazole, sotalol 80 mg p.o. twice daily, hydrochlorothiazide 25 mg daily and lisinopril 40 mg daily. Diltiazem ER
300 mg daily on hold, metoprolol ER 75 mg daily on hold
161/68, pulse 70, respiratory 16, afebrile, pleasant, does not appear to be in distress, head neck exam is unremarkable, regular rate and rhythm, no murmurs, right knee incision, 3+ edema, left lower extremity 1-2+ edema
Hemoglobin 10.4, BUN and creatinine are 32 and 0.7, potassium is 4.1
Objective
Labs:
01/22/25 02:32
01/22/25 02:32
Labs
Hgb 10.4 g/dL (12.0-16.0) L 01/22/25 02:32
Hct 30.4 % (37.0-47.0) L 01/22/25 02:32
Plt Count 235 10^3/uL (130-400) 01/22/25 02:32
Sodium 138 mmol/L (135-145) 01/22/25 02:32
Potassium 4.1 mmol/L (3.5-5.1) 01/22/25 02:32
BUN 32 mg/dl (7-17) H 01/22/25 02:32
Creatinine 0.7 mg/dL (0.6-1.0) 01/22/25 02:32
Glucose 135 mg/dl (70-99) H 01/22/25 02:32
Vital Signs and I&O:
Vital Signs
Temp Pulse Resp BP Pulse Ox
36.3 C 59 16 184/81 96
01/22/25 07:29 01/22/25 08:38 01/22/25 07:29 01/22/25 08:39 01/22/25 07:29
Vital Signs
Temp Pulse Resp BP Pulse Ox
36.3 C 59 16 184/81 96
01/22/25 07:29 01/22/25 08:38 01/22/25 07:29 01/22/25 08:39 01/22/25 07:29
Intake & Output
01/20/25 01/21/25 01/22/25 01/23/25
07:59 07:59 07:59 07:59
Intake Total 400 / 400 1240 / 1240 480 / 480
Output Total 200 / 200 400 / 400
Balance 200 / 200 840 / 840 480 / 480
Physical Exam
Physical Exam
See above
[2025-01-22] MEDS: ORETIC PO (08:57)
--- NOTE | 2025-01-22 12:00 | PTCARENOTE ---
right knee aquacell with small amount of drainage noted past markings. Dr. Núñez (ortho) made aware, no new orders at present. Thigh-hi TEDS placed, ice pack applied at pt's request.
[2025-01-22] MEDS: NEUTRA-PHOS POWDER PACKET 250 MG PO (13:41)
--- NOTE | 2025-01-22 14:55 | W.PN.HOSP.TC ---
Today's Communication/Plan
-
Assessment / Plan
Assessment / Plan
General: No Apparent Distress, Comfortable and Conversant
HEENT: NormoCephalic, Moist mucous membranes, Atraumatic
Respiratory: Clear and Non Labored Respirations
Cardiac: S1/S2, regular rhythm; heart rate around 70
GI: Soft, Non Tender, Non Distended and Normal Bowel Sounds
Musculoskeletal: Right knee surgical dressing in place with mild strikethrough
Skin: Warm and dry
: NO James
Neuro: Awake, Alert, Nonfocal/grossly intact
Psych: Calm and Intact Judgment/Insight
Ms. Bingham is a 79-year-old female with a medical history of paroxysmal A-fib (on sotalol and Eliquis), HFpEF, mitral regurg, gastric ulcers, iron deficiency anemia, and recent right TKA who presented with encephalopathy. She was started on
gabapentin, oxycodone, and dexamethasone following her right knee surgery. She became encephalopathic following a second dose of oxycodone later in the day yesterday. When she presented to the ER via EMS she was found to be bradycardic and
hypotensive. Her blood pressure and heart rate improved with IV fluid bolus and epinephrine infusion. Her encephalopathy improved at that time although she remained somewhat confused. She has been admitted for further evaluation management.
Hypertension:
- Likely rebound after holding home antihypertensive regimen due to hypotension
- Have now restarted on home regimen of lisinopril 40 mg daily and HCTZ 25 mg daily
- Additional IV hydralazine as needed for SBP greater than 170
- Cardiology following, considering adding amlodipine, will monitor
- Likely discharge home in the next 24 hours if blood pressure better controlled
Encephalopathy:
- Suspect secondary to opiate pain medications following right TKA
- Now resolved, at baseline mental status
- Will use pain medication sparingly to avoid oversedation
Bradycardia:
- Initially heart rate was in 30s to 40s in the ED
- Resolved, continuing sotalol 80 mg p.o. twice daily, will continue holding diltiazem and metoprolol
- Cardiology following, recommendations appreciated
- Continue telemetry monitoring
A-fib:
- Has now converted spontaneously to normal sinus rhythm
- Cardiology following, restarted sotalol
- Anticoagulating with Eliquis
- Continue telemetry monitoring
Recent right TKA:
- OR with Dr. Restrepo 01/17, tolerated procedure well
- Pain control as needed, avoid oversedation
- Continue bowel regimen and scheduled dexamethasone
- Surgical dressing evaluated by Ortho, dressing exchanged and incision cleaned, no active bleeding, no need for additional angelo, outpatient follow-up in 10 days for staple removal
DVT prophylaxis: Eliquis
CODE STATUS: Full code
Total time spent on today's encounter was 35 minutes
Anticipated Discharge: 24 - 48 hours
Subjective/Interval History
-
Date of Service: January 22, 2025
Patient was seen and examined at bedside this morning. She feels well but had significant hypertension this morning which has since improved with adjustment in her antihypertensive regimen.
Objective Data
-
Vital Signs:
Vital Signs
Temp Pulse Resp BP Pulse Ox
97.3 F 66 16 167/69 98
01/22/25 11:30 01/22/25 12:17 01/22/25 11:30 01/22/25 12:17 01/22/25 11:30
I&O
01/21/25 01/22/25 01/23/25
06:59 06:59 06:59
Intake Total 1240 / 1240 480 / 480
Output Total 400 / 400
Balance 840 / 840 480 / 480
Review of Systems
-
History Source: Patient
All other systems: Reviewed and negative
Physical Exam
-
General: No Apparent Distress
[2025-01-22] MEDS: LIPITOR 20 MG PO (18:14)
[2025-01-22] MEDS: SENOKOT PO (21:07)
[2025-01-22] MEDS: APRESOLINE 10 MG IV (21:09)
--- NOTE | 2025-01-22 21:55 | PTCARENOTE ---
Patient received at change of shift resting in the bed. Reports mild pain to her right knee, reports that it feels more stiff today but she is presently able to fully weight bear and ambulate with a RW. Denies feeling lightheaded or dizzy. Sinus
rhythm on telemetry. Oxygen saturation 97% on room air. PRN hydralazine given as SBP was greater than 170mmHg, see MAR. Plan of care discussed with patient. Call johnson within reach. Care ongoing.
[2025-01-23] VITALS (9 sets, daily range): BP systolic 144–188; BP diastolic 54–78; BMI 35.1
[2025-01-23 04:44] LABS: Hemoglobin 10.1 g/dL (12.0-16.0); Mean Corp Hgb Conc. 33.7 g/dL (33.0-37.0); Mean Corpuscular Hgb 29.5 pg (27.0-31.0); Mean Corpuscular Volume 87.7 fL (81.0-99.0); Mean Platelet Volume 10.7 fL (7.4-10.4); Platelet Count 220 10^3/uL (130-400); Red Blood Cell Count 3.42 10^6/uL (4.20-5.40); Red Cell Dist. Width 13.3 % (11.5-14.5); White Blood Cell Count 13.2 10^3/uL (4.8-10.8)
[2025-01-23 04:53] LABS: Blood Urea Nitrogen 28 mg/dl (7-17); Calcium 9.1 mg/dl (8.4-10.2); Carbon Dioxide 37 mmol/L (22-30); Chloride 97 mmol/L (98-107); Estimated Creatinine Clearance 64 ml/min; Glucose 135 mg/dl (70-99); Magnesium 1.8 mg/dl (1.6-2.3); Phosphorus 2.6 mg/dl (2.5-4.5); Potassium 3.6 mmol/L (3.5-5.1); Sodium 137 mmol/L (135-145); eGFR > 60.00
[2025-01-23 07:08] LABS: % Basophils 0.4 % (0-2); % Eosinophils 0.2 % (0-6); % Immature Granulocytes 6.8 % (0-0.5); % Lymphocytes 10.8 % (20.5-51.1); % Monocytes 7.5 % (1.7-9.3); % Neutrophils 74.3 % (42.2-75.2); Absolute Basophils 0.1 10^3/uL (0-0.2); Absolute Immature Granulocytes 0.9 10^3/uL (0-0.05); Absolute Lymphocytes 1.4 10^3/uL (1.2-3.4); Absolute Neutrophils 9.8 10^3/uL (1.4-6.5); Nucleated Red Blood Cells % 0.2 %
[2025-01-23] MEDS: DECADRON 4 MG PO (07:54)
[2025-01-23] MEDS: ORETIC 25 MG PO (07:54)
[2025-01-23] MEDS: ELIQUIS 5 MG PO (07:54)
[2025-01-23] MEDS: TYLENOL 1000 MG PO ×2 (07:54→14:22)
[2025-01-23] MEDS: ZESTRIL 40 MG PO (07:54)
[2025-01-23] MEDS: THERAGRAN 1 TABLET PO (07:54)
[2025-01-23] MEDS: BACTROBAN 2% OINTMENT 1 APPLIC TOPICAL (07:54)
[2025-01-23] MEDS: BETAPACE 80 MG PO (07:55)
[2025-01-23] MEDS: PROTONIX 40 MG PO (07:55)
--- NOTE | 2025-01-23 07:55 | W.PN.UPDATE ---
Update Note
Progress Note Update
I stopped by and saw Ms Bingham this morning due to concern over continued bleeding into her dressing. She is POD6 right total knee arthroplasty under the direction of Dr. Restrepo. She was readmitted post-operatively due to cardiac issues. She is on
Eliquis. She was evaluated by my colleague the other day, and her dressing was changed, but there was no need for additional angelo at that time. She reports she is doing well overall in regards to her knee. She reports her motion seems to be
progressing well with minimal pain.
Directed exam of the right knee reveals Aquacel dressing with two areas of blood. This has not permeated the Aquacel. Dressing was removed to reveal surgical incision well approximated with angelo. No active drainage or bleeding from the incision
at present. Expected post-operative edema and ecchymosis throughout the right lower extremity. ROM 0-90 without pain. Calf soft and nontender. Neurovascularly intact distally.
Ms. Bingham's incision was clean and dry on exam this morning. I suspect her small amount of continued bleeding is related to her Eliquis. Her incision was cleaned with Betadine and ABDs/tegaderm were placed due to some irritation from frequent
dressing removals. Her compression stocking was placed this morning. Should her dressing remain dry over the next 2-3 days, it may be removed as scheduled around 10 days post-op. I encouraged her to continue working on her ROM, and we reviewed
exercises she can perform on her own while she is admitted. She would benefit from PT/OT if appropriate given her BP/HR. Orthopedics will see her as scheduled at 2 weeks post-op. We will continue to follow peripherally for now. Please reach out with
any additional questions or concerns.
--- NOTE | 2025-01-23 07:56 | W.PN.CARDCBS ---
Today's Communication / Plan
-
Okay for discharge from my standpoint.
See cardiac recommendations below.
Impression / Plan
-
Primary Care Provider: Helen Richard PA-C
Primary Push Button Switch Assembler: Dr. Grove
EP: Dr. Bernard Melton
Impression:
Admitted with episode of unresponsiveness, bradycardia and recurrent Afib after recent TKA 01/19/25
MICKEY, improved.
Hyponatremia, improved
Anemia
Recent fall, fell at outpatient PT 01/19/25
s/p Right TKA 01/17/25
Bradycardia
Paroxysmal Afib
s/p PVI with evidence of significant LA dilatation and LA myocardial scarring at time of ablation10/16/21
Chronic sotalol therapy since 06/2023
Chronic Eliquis OAC
HTN
HLD
h/o breast CA with right mastectomy, chemotherapy and radiation 1992
ECHO 12/18/20: EF 55-60%, mod dilated LA, mild to mod MR, mod AI, mild TR, mod pulm HTN, PAP 59mmHg
Echo 03/10/23: EF 55-60%, mild to mod MR, mod aortic regurgitation, mild to mod TR
Echo 11/02/24: EF 55 to 60%, biatrial enlargement, mildly dilated RV, mild to moderate MR, mild to moderate aortic regurgitation by pressure half-time of 494 ms, mild to moderate TR with PAP 60 to 65 mmHg, no significant change compared to echo 02/2023
Plan:
Regarding symptomatic bradycardia with changes in mental status, this has resolved with withdrawal of metoprolol and diltiazem. No atrial fibrillation, telemetry is okay. Continue sotalol. Do not restart diltiazem or metoprolol.
Regarding blood pressure, this is improved though if she is still hypertensive. Due to an oversight on my part, amlodipine was not started yesterday but was given this morning. At present I think her blood pressure is adequately controlled, would
discharge on amlodipine 5 mg a day. Current readings do not necessitate additional observation. Blood pressure is somewhat better as lisinopril and hydrochlorothiazide were uptitrated to her previous outpatient dose.
From my standpoint, okay for discharge.
Recommended cardiac medications at discharge:
Apixaban 5 mg twice daily
Atorvastatin 20 mg nightly
Sotalol 80 mg twice daily
Lisinopril 40 mg daily
Hydrochlorothiazide 25 mg daily
Amlodipine 5 mg daily
HPI: Patient was brought to [facility] ER last night after being found unresponsive at home and was admitted with bradycardia and recurrence of Afib with consultation to cardiology. Patient had right TKA 01/17/25 and was d/c'd to home on her usual doses of
Cardizem ER 300 mg daily, HCTZ 25 mg daily, lisinopril 40 mg daily, Toprol XL 75 mg daily and sotalol 80 mg BID. Patient thought she was doing well at home, but when she went to outpatient PT yesterday morning she fell out of the chair, she blamed
the fact that the chair didn't have arms and that she didn't sit down on the center of the seat. Patient went home and took a dose of oxycodone 5 mg. Patient later told her she was going to take a nap and when patient's went to wake
her she was unresponsive and when she did finally awaken she was not acting normally and not following commands or answering questions so patient's called 911. Paramedics found patient awake, but groggy and BP 58/30 with HR 30-40s. Patient
given atropine without change in HR and then Epi 60 mcg push and then started on Epi gtt at 0.1 mcg/kg/min. Patient was brought to [facility] ER and was more awake and able to follow commands. Patient was hyponatremic and Cre up to 1.5 in the ER.
Progress Note - Push Button Switch Assembler
Subjective
Date of Service: January 23, 2025:
79-year-old woman admitted on January 19 with dizziness, hypotension, change in mental status with heart rate of 30s, possibly related to combination of sotalol, metoprolol and diltiazem. Was markedly bradycardic, heart rate better with holding of
diltiazem and metoprolol, still on sotalol, issue yesterday was hypertension for which amlodipine was added and lisinopril and hydrochlorothiazide uptitrated. Currently feels relatively well. Blood pressure is improved but still somewhat
hypertensive. She says blood pressure at home is typically 140 systolic. I had intended to add amlodipine 5 mg a day yesterday, but neglected to put the order in. Current blood pressures are without amlodipine on board. Some oozing from incision
on apixaban, orthopedics is aware and apparently not concerned.
PMH/PSH: Right total knee arthroplasty January 17, 2025, paroxysmal A-fib, PVI 2020, hypertension, hyperlipidemia, right breast cancer with mastectomy, chemo and radiation
Current medications: Apixaban 5 mg twice daily, atorvastatin 20 mg a day, dexamethasone 4 mg twice daily, Colace, pantoprazole, sotalol 80 mg twice daily, lisinopril 40 mg a day and hydrochlorothiazide 25 mg a day.
181/69, pulse 65, respiratory 20, pleasant no distress, head neck exam unremarkable lungs are clear regular rate and rhythm, abdomen benign, some edema right lower extremity
BUN/creatinine 28 and 0.7, potassium 3.6, hemoglobin is 10.1
Objective
Labs:
01/23/25 04:13
01/23/25 04:13
Labs
Hgb 10.1 g/dL (12.0-16.0) L 01/23/25 04:13
Hct 30.0 % (37.0-47.0) L 01/23/25 04:13
Plt Count 220 10^3/uL (130-400) 01/23/25 04:13
Sodium 137 mmol/L (135-145) 01/23/25 04:13
Potassium 3.6 mmol/L (3.5-5.1) 01/23/25 04:13
BUN 28 mg/dl (7-17) H 01/23/25 04:13
Creatinine 0.7 mg/dL (0.6-1.0) 01/23/25 04:13
Glucose 135 mg/dl (70-99) H 01/23/25 04:13
Vital Signs and I&O:
Vital Signs
Temp Pulse Resp BP Pulse Ox
37.1 C 65 20 181/69 94
01/23/25 07:24 01/23/25 07:24 01/23/25 07:24 01/23/25 07:24 01/23/25 07:24
Vital Signs
Temp Pulse Resp BP Pulse Ox
37.1 C 65 20 181/69 94
01/23/25 07:24 01/23/25 07:24 01/23/25 07:24 01/23/25 07:24 01/23/25 07:24
Intake & Output
01/20/25 01/21/25 01/22/25 01/23/25
07:59 07:59 07:59 07:59
Intake Total 400 / 400 1240 / 1240 480 / 480
Output Total 200 / 200 400 / 400
Balance 200 / 200 840 / 840 480 / 480
Physical Exam
Physical Exam
See above
[2025-01-23] MEDS: NORVASC 5 MG PO (08:34)
[2025-01-23] MEDS: APRESOLINE 10 MG IV (10:28)
--- NOTE | 2025-01-23 10:30 | PTCARENOTE ---
Pt's BP remains elevated, Dr. Collins made aware. To monitor after dose of amlodipine. Pt denies headache or dizziness.
--- NOTE | 2025-01-23 12:12 | W.DCSUMMARY ---
Discharge Summary
Discharge Data
Date of Admission: 01/19/25
Date of Discharge: 01/23/25
-
Pending Results: No
Hospital Course
Ms. Bingham is a 79-year-old female with a medical history of paroxysmal A-fib (on sotalol and Eliquis), HFpEF, mitral regurg, gastric ulcers, iron deficiency anemia, and recent right TKA (01/[address] Restrepo) who presented with encephalopathy. She
was started on gabapentin, oxycodone, and dexamethasone following her right knee surgery. She became encephalopathic following a second dose of oxycodone later in the day yesterday. When she presented to the ER via EMS she was found to be
bradycardic and hypotensive. Her blood pressure and heart rate improved with IV fluid bolus and epinephrine infusion. Her encephalopathy improved at that time although she remained somewhat confused. She was admitted for further evaluation
management.
Her mental status and vital signs returned within normal limits with adjustments in her medications. Her presenting symptoms may have been due to accidentally taking additional doses of her rate control and antihypertensive medications in addition
to oxycodone. She was evaluated by cardiology. Her home sotalol was restarted but her diltiazem and metoprolol will continue to be held. Initially her antihypertensive regimen was held, but was later restarted due to rebound hypertension.
Ultimately her home regimen of lisinopril 40 mg daily and HCTZ 25 mg daily will be continued with the addition of amlodipine 5 mg daily for optimal blood pressure control. She will need ongoing monitoring for management of her antihypertensive
regimen. Currently her postsurgical pain is reasonably well-controlled. She should avoid sedating pain medications such as opiates. She was evaluated by orthopedics who changed her surgical dressings while inpatient. They did note some minor
sanguinous drainage from the incision which has since resolved and was likely related to her Eliquis which she is on for A-fib. She will need outpatient follow-up in the orthopedic office in 10 days for staple removal. At time of hospital
discharge she was medically stable. She will need to follow-up with her PCP, cardiology, and orthopedics.
General: No Apparent Distress, Comfortable and Conversant
HEENT: NormoCephalic, Moist mucous membranes, Atraumatic
Respiratory: Clear and Non Labored Respirations
Cardiac: S1/S2, regular rhythm; heart rate around 65
GI: Soft, Non Tender, Non Distended and Normal Bowel Sounds
Musculoskeletal: Right knee surgical dressing in place with mild strikethrough
Skin: Warm and dry
: NO James
Neuro: Awake, Alert, Nonfocal/grossly intact
Psych: Calm and Intact Judgment/Insight
More than 30 minutes spent in discharge including
Final examination of the patient
Summarizing hospital stay
Instructions for continuing care to all relevant caregivers
Preparation of discharge records, prescriptions, and referral forms
Total time spent (in minutes): 40
Discharge Plan
-
Patient Disposition: Home (Routine Discharge)
Discharge Diagnosis/Procedures: Toxic metabolic encephalopathy
Diet: Regular
Activity: As tolerated
Blood Work: BMP in 1-2 weeks
Activity Restrictions/Additional Instructions:
Ms. Bingham is a 79-year-old female with a medical history of paroxysmal A-fib (on sotalol and Eliquis), HFpEF, mitral regurg, gastric ulcers, iron deficiency anemia, and recent right TKA (01/[address] Restrepo) who presented with encephalopathy. She
was started on gabapentin, oxycodone, and dexamethasone following her right knee surgery. She became encephalopathic following a second dose of oxycodone later in the day yesterday. When she presented to the ER via EMS she was found to be
bradycardic and hypotensive. Her blood pressure and heart rate improved with IV fluid bolus and epinephrine infusion. Her encephalopathy improved at that time although she remained somewhat confused. She was admitted for further evaluation
management.
Her mental status and vital signs returned within normal limits with adjustments in her medications. Her presenting symptoms may have been due to accidentally taking additional doses of her rate control and antihypertensive medications in addition
to oxycodone. She was evaluated by cardiology. Her home sotalol was restarted but her diltiazem and metoprolol will continue to be held. Initially her antihypertensive regimen was held, but was later restarted due to rebound hypertension.
Ultimately her home regimen of lisinopril 40 mg daily and HCTZ 25 mg daily will be continued with the addition of amlodipine 5 mg daily for optimal blood pressure control. She will need ongoing monitoring for management of her antihypertensive
regimen. Currently her postsurgical pain is reasonably well-controlled. She should avoid sedating pain medications such as opiates. She was evaluated by orthopedics who changed her surgical dressings while inpatient. They did note some minor
sanguinous drainage from the incision which has since resolved and was likely related to her Eliquis which she is on for A-fib. She will need outpatient follow-up in the orthopedic office in 10 days for staple removal. At time of hospital
discharge she was medically stable. She will need to follow-up with her PCP, cardiology, and orthopedics.
Referrals:
[facility] [Outside]
Felipe Núñez MD [Active] -
Helen Richard PA-C [Family Provider] -
Rebecca Argueta PA-C [Specified Professional Personl] - 02/03/25 9:00 am (You have a follow up visit with Dr. Grove's PARebecca, at the [place] office. Please call with questions. )
Prescriptions:
New
amlodipine 5 mg Tablet
5 mg PO DAILY 30 Days Qty: 30 0RF
Continued
pantoprazole 40 mg Tablet,Delayed Release (Dr/Ec)
40 mg PO DAILY
Rx Instructions:
30 min before meals
sotalol 80 mg Tablet
80 mg PO BID Qty: 60 5RF
atorvastatin 20 mg Tablet
20 mg PO QPM
multivit with min-folic acid [Multivitamin Gummies] 200 mcg Tablet,Chewable
2 tab PO DAILY
mupirocin 2 % ointment
1 applic topical BID Qty: 1 0RF
Patient Comments:
applied this am 01/17/25
gabapentin 300 mg capsule
300 mg PO HS Qty: 10 0RF
Patient Comments:
for post op
Rx Instructions:
*POST-OP USE ONLY
ondansetron 4 mg tablet,disintegrating
4 mg PO Q6H PRN (Reason: n/v) Qty: 20 0RF
Patient Comments:
for post op
Rx Instructions:
take 1/2h b/f pain med if recurrent nausea
allow to dissolve in mouth w/o water
acetaminophen 500 mg Tablet
1,000 mg PO QID Qty: 0 0RF
hydrochlorothiazide 25 mg Tablet
25 mg PO DAILY Qty: 0 0RF
Rx Instructions:
HOLD SYSTOLIC BLOOD PRESSURE <130 IF TAKING OPIOID
lisinopril 40 mg tablet
40 mg PO DAILY Qty: 0 0RF
Rx Instructions:
HOLD SYSTOLIC BLOOD PRESSURE <130 IF TAKING OPIOID
docusate sodium [Colace] 100 mg capsule
100 mg PO BID Qty: 1 0RF
magnesium hydroxide [Milk of Magnesia] 400 mg/5 mL suspension
30 ml PO HS PRN (Reason: constipation) Qty: 1 0RF
Rx Instructions:
continue taking colace and senokot as advised--if no bowel movement 1 day after surgery -add milk of mag
sennosides [Senokot] 8.6 mg tablet
17.2 mg PO BID Qty: 2 0RF
Eliquis 5 mg tablet
5 mg PO BID
Rx Instructions:
1/2 tab (2.5mg) twice a day--RESUME 5MG TWICE A DAY DOSING ON 01/20/25
Discontinued
diltiazem HCl 300 MG capsule,extended release 24hr
300 mg PO DAILY
metoprolol succinate 50 mg Tablet Extended Release 24 Hr
75 mg PO DAILY Qty: 60 0RF
dexamethasone 4 mg tablet
4 mg PO BID Qty: 6 0RF
Patient Comments:
for post op
Rx Instructions:
take with food
post-op use only
oxycodone 5 mg tablet
5 mg PO Q6H PRN (Reason: 1 tab moderate pain, 2 tabs severe pain) Qty: 30 0RF
Patient Comments:
for post op
Rx Instructions:
Ongoing therapy
POST-OP USE ONLY
Discharge Orders:
Discharge Patient (As Directed); Ordered 01/23/25
Ordered By: Dean Mtz
Care Plan Goals
Care Plan Goals:
Problem: Readiness for enhanced knowledge related to diagnosis and treatment plan
Goal: Understand your diagnosis and treatment plan needs, including medications if applicable.
Instructions: Know your diagnosis, underlying causes and treatment plan options, including medications if applicable. Consult with your health care team to learn about your diagnosis and treatment plan, including medications if applicable.
Discharge Date and Time
Print Language: HONDURAN
[2025-01-23] MEDS: SENOKOT PO (12:38)
[2025-01-23] MEDS: COLACE PO (12:38)
== END 2025-01-23 16:34 | disposition home health service (06) | DRG 308 ==
LOC: IVU 22:00
PROVIDERS: ADMITTING PHYSICIAN Hospitalist; ATTENDING PHYSICIAN Internal Medicine; CONSULT PHYSICIAN Nuclear Medicine Nuclear Cardiology; EMERGENCY PHYSICIAN Emergency Medicine; FAMILY PHYSICIAN Physician Assistant
DX: R00.1 Bradycardia, unspecified (principal); G92.8 Other toxic encephalopathy; E87.1 Hypo-osmolality and hyponatremia; I50.32 Chronic diastolic (congestive) heart failure; I48.0 Paroxysmal atrial fibrillation; I11.0 Hypertensive heart disease with heart failure; D50.9 Iron deficiency anemia, unspecified; E78.00 Pure hypercholesterolemia, unspecified; I34.0 Nonrheumatic mitral (valve) insufficiency; K21.9 Gastro-esophageal reflux disease without esophagitis; E86.0 Dehydration; I25.2 Old myocardial infarction; Z79.899 Other long term (current) drug therapy; Z87.11 Personal history of peptic ulcer disease; Z85.3 Personal history of malignant neoplasm of breast; Z92.3 Personal history of irradiation
CPT/HCPCS: 80048; 80053; 81003; 81015; 82962; 83735; 83935; 84100; 84300; 84443; 85025; 87086; 93005; 96360; 96361; 97110; 97116; 97162; 97167; 99291

== ENCOUNTER → 2025-06-02 10:06 | Outpatient (REF) | payer MEDICARE, OTHER, SELFPAY | LOC: RAD 10:06 | PROVIDERS: ATTENDING PHYSICIAN Physician Assistant | DX: M79.662 Pain in left lower leg (principal); R22.42 Localized swelling, mass and lump, left lower limb; S80.12XA Contusion of left lower leg, initial encounter | CPT/HCPCS: 93971 ==

== ENCOUNTER 2025-09-12 09:36 | Inpatient (IN) | payer MEDICARE, OTHER, SELFPAY ==
--- NOTE | 2025-05-04 10:13 | CM ---
Addendum entered by Angeline Olguin RN 05/04/25 14:53:
Demographics: confirmed
Living situation: lives with
Support Person Post Operatively:
History of
VN: hx of [facility]
SNF: No
Outpatient: [facility]
Has patient purchased required equipment: yes
PCP: Jose Manuel
Pharmacy: [facility]
Post Operative Discharge Plan: As per Dr. Belcher, [facility] and then transition to outpatient PT. Patient preference is for [facility].
Original Note:
CM reviewed medical records. Patient is known to this CM. CM spoke with patient. Patient was driving at the time of call, and will call this CM back.
[2025-05-18 11:31] LABS: Hematocrit 41.8 % (37.0-47.0); Hemoglobin 13.0 g/dL (12.0-16.0); Mean Corp Hgb Conc. 31.1 g/dL (33.0-37.0); Mean Corpuscular Volume 87.1 fL (81.0-99.0); Platelet Count 286 10^3/uL (130-400); Red Cell Dist. Width 13.8 % (11.5-14.5)
[2025-05-18 11:40] LABS: ALT (SGPT) 17 U/L (0-35); AST (SGOT) 23 U/L (14-36); Albumin 4.5 g/dl (3.5-5.0); Alkaline Phosphatase 89 U/L (38-126); Blood Urea Nitrogen 27 mg/dl (7-17); Calcium 10.3 mg/dl (8.4-10.2); Carbon Dioxide 34 mmol/L (22-30); Chloride 101 mmol/L (98-107); Glucose 104 mg/dl (70-99); Potassium 4.7 mmol/L (3.5-5.1); Sodium 140 mmol/L (135-145); Total Protein 7.1 g/dl (6.3-8.2); eGFR > 60.00
[2025-05-18 12:08] LABS: Glycohemoglobin (HgbA1c) 5.9 % (4.0-5.6)
[2025-05-18 14:27] VITALS: BMI 36.4
--- NOTE | 2025-08-19 14:23 | VNURNOTE ---
Addendum entered by Trina Metz RN 09/13/25 10:48:
Home Health Liaison met with patient at bedside to discuss [facility] nurse/therapy, visits, schedule and homebound status. Patient is agreeable and understands that visits at home will be 2-3 x per week to assess and teach medical management.
Patient is aware that [facility] will contact them for start of care within 1-2 days after discharge from . Provided contact number for [facility].
[facility] referral accepted in [facility].
Original Note:
Chart reviewed. Patient had [facility] in the past for prior joint surgery. Referral placed in [facility]. Will follow up as in-patient.
--- NOTE | 2025-08-19 14:35 | CM ---
Orthopedic Case Management Assessment
Demographics: Patient lives at [address] [place] [address] [place] [id number], lives with spouse
Living situation: Patient lives with spouse in in a bilevel home with chair lift, patient has a cane and walker.
Support Person Post Operatively: Spouse
History of
VN: [facility]
SNF: No
Outpatient Rm and [place]
Has patient purchased required equipment: cane and walker
PCP: Dr Helen Richard
Pharmacy: [facility] in [place]
Post Operative Discharge Plan: Patient has been scheduled for admit morning or surgery for left total knee arthroplasty with Dr Restrepo, per Dr Restrepo patient will need 2 weeks of home care after surgery, case worker reached out to [facility] and they
have referral for home care, patient reports she will go to outpatient therapy with [facility] and he spouse will transport her to therapy. Patient has cane and walker.
[2025-08-31 09:48] VITALS: BMI 36.4
--- NOTE | 2025-09-11 16:10 | CM ---
Patient is scheduled for SACHIN with Dr. Restrepo, 09/12/25, and plan is to home with [facility] for 2 weeks then outpatient therapy at [facility].
[2025-09-12] VITALS (12 sets, daily range): BP systolic 138–180; BP diastolic 61–87; PULSE 73; BMI 36.4
[2025-09-12] MEDS: CELEBREX 200 MG PO (10:19)
[2025-09-12] MEDS: TYLENOL 650 MG PO ×3 (10:19→21:05)
[2025-09-12] MEDS: NORMOSOL-R/PLASMALYTE-A 1000 IV ×2 (10:30→16:32)
--- NOTE | 2025-09-12 14:17 | W.PN.ORTHO ---
Today's Communication / Plan
-
D/C WHEN STABLE
Assessment
.
Assessment:
Pain control. Tramadol with multimodal approach.
Patient had significant postoperative complications following
right knee with documentation of giving double doses of
sotalol, diltiazem, as well as metoprolol with resultant syncope,
bradycardia, and acute kidney injury due to decreased cardiac
output. She has fully recovered with medications adjusted
due to baseline hypotension. We will monitor patient's blood
pressure and utilize midodrine if indicated. She was advised adequate
hydration both pre and post-operatively. WANDA stockings.
Plan
.
DVT Prophylaxis: Other (Eliquis)
Activity:
Out of bed.
PT/OT
Discharge Plan: Home w/ VN
Vital Signs and Labs
.
Vital Signs and Labs:
Lab Results
05/18/25 10:10
05/18/25 10:10
Temp Pulse Resp BP Pulse Ox
98.9 F 65 16 180/83 97
09/12/25 09:55 09/12/25 09:55 09/12/25 09:55 09/12/25 09:55 09/12/25 09:55
[2025-09-12] MEDS: ULTRAM 50 MG PO (15:36)
[2025-09-12] MEDS: PROTONIX 40 MG PO (16:32)
--- NOTE | 2025-09-12 16:58 | CM ---
CM consult placed for discharge planning and HH RN, PT/OT. Preference is -HH. liaison has placed referral.
[2025-09-12] MEDS: LIPITOR 20 MG PO (18:39)
[2025-09-12] MEDS: ANCEF 5 IV (20:50)
[2025-09-12] MEDS: COLACE 100 MG PO (20:51)
[2025-09-12] MEDS: BETAPACE 80 MG PO (20:51)
[2025-09-12] MEDS: SENOKOT 17.2 MG PO (20:51)
[2025-09-12] MEDS: DECADRON 4 MG IV (20:52)
[2025-09-12] MEDS: BACTROBAN 2% OINTMENT 1 APPLIC NASAL (20:56)
[2025-09-12] MEDS: ELIQUIS 2.5 MG PO (20:56)
[2025-09-12] MEDS: NEURONTIN 300 MG PO (21:59)
[2025-09-13] MEDS: TYLENOL PO ×2 (00:13→12:06)
[2025-09-13 03:05] VITALS: BP 126/54
[2025-09-13] MEDS: ANCEF 5 IV (03:46)
[2025-09-13] MEDS: TYLENOL 650 MG PO ×3 (05:25→12:09)
[2025-09-13 05:34] VITALS: BMI 37.4
[2025-09-13 07:10] VITALS: BP 151/61
[2025-09-13] MEDS: ELIQUIS 2.5 MG PO (08:12)
[2025-09-13] MEDS: BETAPACE 80 MG PO (08:13)
[2025-09-13] MEDS: COLACE 100 MG PO (08:13)
[2025-09-13] MEDS: PROTONIX 40 MG PO (08:13)
[2025-09-13] MEDS: DECADRON 4 MG IV (08:14)
[2025-09-13] MEDS: BACTROBAN 2% OINTMENT 1 APPLIC NASAL (08:16)
[2025-09-13] MEDS: SENOKOT PO (08:16)
[2025-09-13 09:29] VITALS: BP 144/64; BP 165/72; PULSE 72; O2SAT 93
[2025-09-13 10:40] VITALS: BP 150/65; PULSE 65; O2SAT 93
[2025-09-13 11:00] VITALS: BP 135/69
--- NOTE | 2025-09-13 11:09 | CM ---
Chart reviewed and patient is currently ambulating 150 feet with physical therapy plan is to home with [facility], referral sent to VN.
Plan; Home with [facility]
--- NOTE | 2025-09-13 12:29 | W.PN.ORTHO ---
Today's Communication / Plan
-
d/c
Assessment
.
Distal Motor Intact: Yes
Dressing:
Clean, dry and intact.
Assessment:
Pain control. Tramadol with multimodal approach.
Patient had significant postoperative complications following
right knee with documentation of giving double doses of
sotalol, diltiazem, as well as metoprolol with resultant syncope,
bradycardia, and acute kidney injury due to decreased cardiac
output. She has fully recovered with medications adjusted
due to baseline hypotension. We will monitor patient's blood
pressure and utilize midodrine if indicated. She was advised adequate
hydration both pre and post-operatively. WANDA stockings.
Plan
.
Surgery / Date: L TKA Dr Restrepo 09/12/25
DVT Prophylaxis: Other (eliquis)
Activity:
Out of bed.
PT/OT
Discharge Plan: Home w/ VN
Subjective
.
.:
Patient resting comfortably.
Vital Signs and Labs
.
Vital Signs and Labs:
Lab Results
05/18/25 10:10
05/18/25 10:10
Temp Pulse Resp BP Pulse Ox
97.8 F 66 16 135/69 95
09/13/25 11:00 09/13/25 11:00 09/13/25 11:00 09/13/25 11:00 09/13/25 11:00
Non-invasive Hgb result: 10.5
Physical Exam
-
HEENT: No pallor, cyanosis, or jaundice. Throat clear.
NECK: Supple. No JVD.
RESPIRATORY: Lungs clear to auscultation.
CVS: S1, S2 normal. RRR.� No murmur, rub or gallop.
ABDOMEN: Soft, non-tender. No distension. BS+/normal.
EXTREMITIES: strength equal, no calf pain with palpation
KENNEL ASSISTANT: AOx3. No focal deficits. space and missile defense operations grossly intact
== END 2025-09-13 14:12 | disposition home health service (06) | DRG 470 ==
LOC: 2 SOUTH 09:36
PROVIDERS: ADMITTING PHYSICIAN Specialist; FAMILY PHYSICIAN Physician Assistant
PROC: 0SRD0J9 Replacement of Left Knee Joint with Synthetic Substitute, Cemented, Open Approach (ICD-10-PCS; 2025-09-12)
DX: M17.12 Unilateral primary osteoarthritis, left knee (principal); E66.9 Obesity, unspecified; Z68.35 Body mass index [BMI] 35.0-35.9, adult; I10 Essential (primary) hypertension; E78.5 Hyperlipidemia, unspecified; Z96.651 Presence of right artificial knee joint; Z96.652 Presence of left artificial knee joint; R06.09 Other forms of dyspnea; I48.0 Paroxysmal atrial fibrillation; Z79.01 Long term (current) use of anticoagulants; K21.9 Gastro-esophageal reflux disease without esophagitis; D50.9 Iron deficiency anemia, unspecified; Z90.11 Acquired absence of right breast and nipple; Z90.710 Acquired absence of both cervix and uterus; Z85.3 Personal history of malignant neoplasm of breast
CPT/HCPCS: 36415; 73560; 80053; 83036; 85027; 87070; 97110; 97116; 97162; 97166; 97530; 97535; C1713; C1776